=== PATIENT | male | born 1950 | race Caucasian/White ===

== ENCOUNTER 2024-11-23 17:47 | Emergency (ER) | payer OTHER, SELFPAY ==
--- NOTE | 2024-11-23 | ECG_ITS ---
Test Reason : CHEST PAIN Blood Pressure : */* mmHG Vent. Rate : 64 BPM Atrial Rate : 64 BPM P-R Int : 204 ms QRS Dur : 106 ms QT Int : 390 ms P-R-T Axes : 53 -32 -9 degrees QTcB Int : 402 ms Sinus rhythm with occasional Premature ventricular complexes Left axis deviation Abnormal ECG No previous ECGs available Referred By: Generic ED Physician Electronically Signed By: Kristian Jamison
--- NOTE | ~2024-11-23 | XR_ITS ---
CLINICAL HISTORY: chest pain 2 view chest x-ray Comparison: None Findings: Mild right infrahilar atelectasis/pneumonitis. Mild emphysematous changes. Heart size is at the upper limits of normal. Tortuosity of the thoracic aorta noted. Degenerative changes include the partially imaged shoulders, AC joints, and imaged spine. IMPRESSION: Mild right infrahilar atelectasis/pneumonitis This document has been electronically signed by: Scott Rolle MD on 11/23/2024 19:08:09
[2024-11-23 17:53] VITALS: BP 138/60; PULSE 63; RESP 20; TEMP 37; O2SAT 95; BMI 35.3
--- NOTE | 2024-11-23 17:55 | ED.GENADULT ---
HPI - General Adult General Chief complaint: Chest Pain Stated complaint: chest pains Time Seen by Provider: 11/23/24 23:38 Source: patient, RN notes reviewed and old records reviewed Mode of arrival: ambulatory Limitations: no limitations History of Present Illness ED Provider: Elliott SIMS narrative: 74-year-old male presents for evaluation of chest pain. He reports he was sitting at home when he had left-sided chest pain that lasted for a few seconds. The pain started while he was sitting down. He denies any cough, fevers, chills pain He does reports some shortness of breath while he was experiencing the pain. He does have a history of coronary artery disease with stents from a few years back The patient has not had any chest pain or palpitations since the few seconds around 4:30 p.m. this afternoon. His pain is not consistent with his previous coronary artery disease requiring stenting. He has no other complaints or concerns at this time Related Data Allergies Allergy/AdvReac Type Severity Reaction Status Date / Time No Known Allergies Allergy Verified 11/23/24 18:01 Review of Systems Constitutional: Constitutional: Denies body ache(s), Denies chills, Denies fever(s) and Denies frequent falls Eyes: Eyes: Denies blurry vision ENT: Denies vertigo and Denies dizziness Cardiovascular: Cardiovascular: Reports chest pain, Reports rapid heart rate, Reports palpitations and Denies dyspnea Respiratory: Respiratory: Denies cough and Denies dyspnea Gastrointestinal: Gastrointestinal: Denies abdominal pain, Denies nausea and Denies vomiting Musculoskeletal: Musculoskeletal: Denies back pain Integumentary/Breasts: Skin/Breast: Denies rash Neurologic: Denies vertigo, Denies dizziness and Denies frequent falls Endocrine: Endocrine: Reports palpitations PMFSH Social History Social History Alcohol intake: current Alcohol intake frequency: holidays/special occasions only Alcohol type: beer and hard liquor Smoked in Last 30 Days: No Use of substances other than those prescribed or required for medical reasons: No Advance Directives: No Advance Directives Information Provided: No Physical Exam ED Vital Signs: Vital Signs - 24 hr 11/23/24 17:53 11/23/24 21:18 Temperature 98.6 F 97.9 F Pulse Rate 63 61 Respiratory Rate 20 13 Blood Pressure 138/60 124/71 Pulse Oximetry 95 96 Oxygen Delivery Method Room Air Room Air BMI result Body Mass Index 35.3 Const General: healthy appearing, comfortable, no acute distress, alert and awake Nutritional Appearance: well nourished Orientation/consciousness: patient oriented x3 HENMT Head: Yes normocephalic and Yes atraumatic Eyes Eyelids: Yes eyelids normal Conjunctivae: conjunctivae normal Sclerae: sclerae normal Corneas: corneas normal Pupils: Equal, round and reactive pupils present EOM: EOMs intact bilaterally Neck Neck: Yes full ROM Resp Effort & Inspection: normal respiratory effort, able to speak in complete sentences, no audible wheezes and not labored Auscultation: clear to auscultation bilaterally Cardio Rate: regular rate Rhythm: regular rhythm GI Inspection: No distended Palpation (GI): Soft to palpation, not firm, nontender, no guarding and not rigid Skin General skin exam: no rashes or lesions noted and elasticity normal Neuro General: patient oriented x3 Cranial nerves: Yes Equal, round and reactive pupils present and Yes Bilaterally intact EOM present Cognition (Neuro): normal cognition Extrem Other: Moving all extremities well without any obvious deformities Course Course Course Narrative: This is a rapid medical exam performed by Jose Muñiz NP: Additional HPI, ROS, PE not included below will be deferred to primary provider. Patient is a 74-year-old [place] speaking male with history of prior ?stents placed in [place] 2 yrs ago, not anticoagulated presenting with complaint of chest pain x 2 hrs, began while sitting on the couch. Headache x 1 hr. Plan: EKG, labs, CXR Medical Decision Making Medical Decision Making [facility] Narrative: 74-year-old male with past medical history significant for coronary artery disease, COPD, not on oxygen presents for evaluation of chest pain. He had a brief episode of chest pain that was left-sided in his lasted a few seconds around 4:30 p.m. this afternoon. His workup shows no evidence of acute ischemia, he had a troponin drawn twice both of which were negative, his chest x-ray shows right-sided pneumonitis versus atelectasis. He has no cough fevers, chills. His pain is left-sided. This x-ray finding is most consistent with atelectasis. Hypoxic, tachypneic or tachycardic. Less likely PE. Asymptomatic. His pain may have been related to anxiety versus chest wall strain versus GERD. However he will be discharged to follow up with his PCP Differential Diagnosis Differential Diagnoses: The differential diagnosis associated with the presentation includes Chest pain ACS Costochondritis Chest anxiety COPD Admission/Observation Consideration of admission/observation: Escalation of care including admission/observation considered Lab Data MDM Lab Attestation statement: I reviewed the patient's lab results. Leukocytosis or anemia. Normal platelet count. No electrolyte abnormalities. Normal renal function. 11/23/24 18:06 11/23/24 18:06 Labs: Lab Results 11/23/24 11/23/24 Range/Units 18:06 19:56 WBC 8.0 (4.8-10.8) X10*3/uL RBC 4.78 (4.60-5.80) X10*6/uL Hgb 14.8 (14.0-18.0) g/dl Hct 43.6 (42.0-52.0) % MCV 91.2 (80.0-98.0) fL MCH 31.0 (27.0-33.0) pg MCHC 33.9 (31.0-36.0) g/dl RDW 12.6 (11.0-16.0) % Plt Count 176 (160-400) X10*3/uL MPV 9.8 (9.4-12.4) fL Immature Gran % (Auto) 0.3 (0.0-0.4) % Neut % (Auto) 60.5 (45-73) % Lymph % (Auto) 30.9 (20-40) % [place] % (Auto) 6.8 (2-11) % Eos % (Auto) 1.0 (0-4) % Baso % (Auto) 0.5 (0-2) % Lymph # (Auto) 2.5 (1.2-4.9) X10*3/uL [place] # (Auto) 0.5 (0.1-1.2) X10*3/uL Eos # (Auto) 0.1 (0.0-0.4) X10*3/uL Baso # (Auto) 0.0 (0.0-0.2) X10*3/uL Abs Immat Gran (auto) 0.02 (0.00-0.03) X10*3/uL Absolute Neuts (auto) 4.9 (2.0-8.3) x10*3/uL Absolute Nucleated RBC 0.000 (0.0-0.012) X10*3/uL Nucleated RBC % (auto) 0.0 (0.0-0.2) /100WBC Sodium 143 (135-145) mmol/L Potassium 4.8 (3.3-5.1) mmol/L Chloride 109 H (96-108) mmol/L Carbon Dioxide 29 (22-29) mmol/L Anion Gap 10 L (12-20) BUN 16 (9-16) mg/dL Creatinine 1.13 (0.5-1.4) mg/dL Estim Creat Clear Calc 62.1 Estimated GFR > 60 Random Glucose 174 H (60-115) mg/dL Calcium 9.0 (8.4-10.2) mg/dL Magnesium 2.1 (1.6-2.6) mg/dL Total Bilirubin 0.2 (0.0-1.0) mg/dL AST 21 (5-37) U/L ALT 36 (0-40) U/L Alkaline Phosphatase 66 (39-117) U/L Troponin I High Sens < 2.7 < 2.7 (<3.5-35.0) ng/L B-Natriuretic Peptide 97 (<100) pg/mL Total Protein 7.2 (6.5-8.0) g/dL Albumin 3.9 (3.5-5.0) g/dL Influenza Type A (PCR) NEGATIVE (Negative) Influenza Type B (PCR) NEGATIVE (Negative) RSV RNA Qual (PCR) NEGATIVE (Negative) SARS-CoV-2 RNA (RT-PCR) NEGATIVE (Negative) Independent Interpretation I performed an independent interpretation of an: EKG and Plain X-Ray Interpretation: Sinus rhythm with a rate of 64 beats minute Radiology Impression Discussion of test interpretation with radiology: I have reviewed the radiologist's reading. Radiologist Impression: Findings: Mild right infrahilar atelectasis/pneumonitis. Mild emphysematous changes. Heart size is at the upper limits of normal. Tortuosity of the thoracic aorta noted. Degenerative changes include the partially imaged shoulders, AC joints, and imaged spine. IMPRESSION: Mild right infrahilar atelectasis/pneumonitis This document has been electronically signed by: Scott Rolle MD on 11/23/2024 19:08:09 Discharge Plan Discharge Clinical Impression: Atypical chest pain Patient Disposition: Home, Self-Care Instructions: Chest Pain (ED) Additional Instructions: Your workup in the ER today was reassuring. This includes your blood work, chest x-ray, and EKG. Follow-up with your primary doctor. Return for new or worsening symptoms Print Language: Moz[place]ican
[2024-11-23 18:10] LABS: MANUAL DIFF FLAG NO
[2024-11-23 18:21] LABS: Basophils Percent Auto 0.5 % (0-2); Eosinophils Absolute Auto 0.1 X10*3/uL (0.0-0.4); Hematocrit 43.6 % (42.0-52.0); Hemoglobin 14.8 g/dl (14.0-18.0); Imm Gran Abs Auto 0.02 X10*3/uL (0.00-0.03); Imm Gran Pct Auto 0.3 % (0.0-0.4); Lymphocytes Absolute Auto 2.5 X10*3/uL (1.2-4.9); Lymphocytes Percent Auto 30.9 % (20-40); Mean Corpuscular HGB Conc 33.9 g/dl (31.0-36.0); Mean Corpuscular Volume 91.2 fL (80.0-98.0); Mean Platelet Volume 9.8 fL (9.4-12.4); Monocytes Absolute Auto 0.5 X10*3/uL (0.1-1.2); Monocytes Percent Auto 6.8 % (2-11); Neutrophils Absolute Auto 4.9 x10*3/uL (2.0-8.3); Neutrophils Percent Auto 60.5 % (45-73); Platelet Count 176 X10*3/uL (160-400); Red Blood Count 4.78 X10*6/uL (4.60-5.80); Red Cell Distribution Width 12.6 % (11.0-16.0)
[2024-11-23 18:27] LABS: Alanine Aminotransferase 36 U/L (0-40); Albumin Level 3.9 g/dL (3.5-5.0); Alkaline Phosphatase 66 U/L (39-117); Anion Gap 10 (12-20); Aspartate Amino Transferase 21 U/L (5-37); Bilirubin Total 0.2 mg/dL (0.0-1.0); Blood Urea Nitrogen 16 mg/dL (9-16); Carbon Dioxide 29 mmol/L (22-29); Chloride 109 mmol/L (96-108); Creatinine Clr Calc Pharmacy 62.1; Estimated Glomerular Filt Rate > 60; Glucose Random 174 mg/dL (60-115); Magnesium 2.1 mg/dL (1.6-2.6); Potassium 4.8 mmol/L (3.3-5.1); Sodium 143 mmol/L (135-145); Total Protein 7.2 g/dL (6.5-8.0)
[2024-11-23 18:33] LABS: B Type Natriuretic Peptide 97 pg/mL (<100)
[2024-11-23 18:34] LABS: Troponin-I High Sensitivity < 2.7 ng/L (<3.5-35.0)
[2024-11-23 18:48] LABS: Influenza A PCR NEGATIVE (Negative); Influenza B PCR NEGATIVE (Negative); Resp Syncy Virus RNA Qual PCR NEGATIVE (Negative); SARS COV2 PCR INHOUSE NEGATIVE (Negative)
[2024-11-23 20:23] LABS: Troponin-I High Sensitivity < 2.7 ng/L (<3.5-35.0)
[2024-11-23 21:18] VITALS: BP 124/71; PULSE 61; RESP 13; TEMP 36.6; O2SAT 96
[2024-11-23 21:19] VITALS: PULSE 59
[2024-11-24 00:25] VITALS: BP 124/73; PULSE 62; RESP 16; TEMP 36.8; O2SAT 97
== END 2024-11-24 00:32 | disposition home or self-care (01) ==
PROVIDERS: Registered Nurse Emergency; Emergency Provider Emergency Medicine
DX: R07.89 Other chest pain (principal); R06.02 Shortness of breath; I25.10 Atherosclerotic heart disease of native coronary artery without angina pectoris; Z03.818 Encounter for observation for suspected exposure to other biological agents ruled out; Z79.899 Other long term (current) drug therapy
CPT/HCPCS: 0241U; 36415; 71046; 80053; 83735; 83880; 84484; 85025; 93005; 99283; 99285

== ENCOUNTER → 2024-11-23 17:49 | Outpatient (BNV) | payer OTHER, SELFPAY | PROVIDERS: Emergency Provider Emergency Medicine; Visit Provider Internal Medicine Cardiovascular Disease | DX: I49.3 Ventricular premature depolarization (principal) | CPT/HCPCS: 93010 ==

== ENCOUNTER → 2024-11-23 18:01 | Outpatient (BNV) | payer OTHER, SELFPAY | PROVIDERS: Visit Provider Radiology Neuroradiology | DX: R07.9 Chest pain, unspecified (principal) | CPT/HCPCS: 71046 ==

== ENCOUNTER 2025-01-11 12:52 | Outpatient (AMB) | payer OTHER, SELFPAY ==
--- NOTE | 2025-01-11 12:57 | A.OFFVIS_ITS ---
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 Intake Note: [facility]) had stint about 2 years ago Entry Level Machine Operator Required: Yes Entry Level Machine Operator Services: Entry Level Machine Operator Present Entry Level Machine Operator Name: Vidya Airline Radio Operator: Airline Radio Operator Present Accompanied by: Spouse Allergies No Known Allergies Allergy (Verified 11/23/24 18:01) Medication List - Last Reconciled 01/11/25 by Jeovany Valencia MD aspirin 81 mg PO DAILY atorvastatin 80 mg PO BEDTIME empagliflozin 25 mg PO DAILY escitalopram oxalate 10 mg PO DAILY finasteride 5 mg PO DAILY gabapentin 300 mg PO DAILY melatonin 3 mg PO BEDTIME PRN metoprolol succinate ER 25 mg PO DAILY omeprazole 20 mg PO DAILY sacubitril-valsartan 49-51 mg (Entresto) 1 tab PO BID tamsulosin 0.4 mg PO DAILY HPI Comments Details: Thank you for referring Mr. Yepez in cardiology consultation today. History was obtained with help of frame and scrap crusher in the room. History was provided with help of his . About couple of years ago he ended up going to the hospital was noted to have severe shortness of breath and was suspected that he probably had COPD exacerbation as he has prior history of COPD although at that time his echocardiogram revealed ejection fraction 15%. He subsequently underwent a cardiac catheterization and was noted to have severe triple-vessel disease. He was then offered coronary artery bypass grafting by his sales support manager but subsequently was felt that he was not a candidate for open-heart surgery. They clearly do not know why. He subsequently underwent multivessel PCI. I do not have any copy of the reports of these procedures. I have advised the to get these reports. He says subsequently had a echocardiogram last year which showed LV ejection fraction of 39%. He is currently on neurohormonal modulation with metoprolol as well as Entresto therapy. He is also on empagliflozin for diabetes. He said he is not able to exercise much because of his arthritic issues. He notices exertional shortness of breath climbing a flight of stairs and says that he has to use inhaler therapy. He tries to walk on a treadmill but he is limited because of the pain. He does not have any significant chest pain or shortness of breath. Denies any orthopnea, PND. Occasional leg edema but this is not constant. He denies any prolonged palpitation irregular heart beat. As per the he was gained weight since he has been here for the last 4 months due to lack of exercise also eating. He had lab work done through your office, I do not have the copy of the same. [facility] Medical History HTN (hypertension) Hyperlipidemia COPD (chronic obstructive pulmonary disease) Diabetes Ischemic cardiomyopathy CAD (coronary artery disease) Surgical History Stented coronary artery Social History Alcohol intake: current Alcohol intake frequency: holidays/special occasions only Alcohol type: beer and hard liquor Review of Systems Const Denies chills, Denies daytime sleepiness, Denies fatigue, Denies fever(s), Denies frequent falls, Denies poor appetite, Denies snoring, Denies stops breathing during sleep, Denies weakness, Denies weight gain and Denies weight loss Eyes Denies loss of vision ENT Denies dizziness and Denies hearing loss Card Denies chest pain, Denies claudication, Denies leg edema, Denies lightheadedness, Denies palpitations, Denies dyspnea, Denies dyspnea on exertion and Denies orthopnea Resp Denies cough, Denies excessive phlegm production, Denies dyspnea, Denies dyspnea on exertion, Denies snoring and Denies wheezing GI Denies abdominal pain, Denies hematochezia, Denies change in bowel habits, Denies nausea and Denies vomiting Denies dysuria and Denies urinary frequency Musc Denies arthralgias, Denies muscle weakness, Denies numbness and Denies other (frequent falls) Skin/Breast Denies nail changes and Denies rash Neuro Denies Abnormal speech present, Denies dizziness, Denies frequent falls, Denies loss of vision, Denies memory loss, Denies numbness and Denies weakness Psych Denies depression and Denies memory loss Endo Denies fatigue and Denies palpitations Javi/Lymph Reports easy bruising and Reports other (anemia) Aller/Immun Denies wheezing Physical Exam Vital Signs: Last Vital Signs Pulse 66 01/11/25 13:00 BP 110/68 01/11/25 13:00 BMI result Body Mass Index 35.9 Const General: cooperative, comfortable, no acute distress, alert and awake Nutritional Appearance: obese Orientation/consciousness: patient oriented x3 Limitations: ambulation with cane HEENT Head: Yes normocephalic and Yes atraumatic Neck Neck: Yes trachea midline, Yes supple and Yes no JVD Resp Effort & Inspection: normal respiratory effort Auscultation: no rales, no wheezes and diminished lung sounds Cardio Jugular venous distension: no JVD Rate: regular rate Rhythm: regular rhythm Heart sounds: S1 normal heart sound present, S2 normal heart sound present, no click, no gallops, no murmurs and no rubs Bruits: no carotid bruits GI Inspection: Yes obesity Auscultation: normal bowel sounds Skin General skin exam: no rashes or lesions noted and ecchymosis Neuro General: patient oriented x3 and no focal motor deficits Speech: No Abnormal speech present Extrem General: Yes no clubbing, cyanosis or edema Psych Appearance: grossly normal Office Procedures EKG Details: EKG shows normal sinus rhythm with nonspecific ST-T changes in inferior leads [id number], Complete Assessment & Plan Assessment & Plan (1) Ischemic cardiomyopathy: Code(s): I25.5 - Ischemic cardiomyopathy Category: Medical Plan: Ischemic cardiomyopathy in this elderly gentleman with moderate LV systolic dysfunction by last echocardiogram. Clinically does not have any signs of congestive heart failure. Signs and symptoms of heart failure were discussed. Strongly recommend to continue Entresto as well as metoprolol therapy. Can not maximize metoprolol therapy due to lower heart rate. Continue current therapy. Advised to call me with any worsening symptoms. Also continue empagliflozin for diabetes as well as neurohormonal modulation. No indication for diuretic therapy. Will update echocardiogram near future to assess LV systolic function. This was discussed with him. He has symptoms exertional shortness of breath and multifactorial most likely related to underlying significant COPD, deconditioning as well as obesity and LV systolic dysfunction. No signs of heart failure at this point time. (2) CAD (coronary artery disease): Code(s): I25.10 - Atherosclerotic heart disease of [place] coronary artery without angina pectoris Category: Medical Plan: CAD with multivessel PCI done for severe triple-vessel disease and LV systolic dysfunction possibly related to high risk for surgery given his underlying COPD. Would like to get Cardiothoracic consult note from [place]. For now discussed importance of lifelong aspirin therapy. Continue high-intensity statin therapy with target goal LDL less than 55 mg/dL. He is encouraged to increase activity level and participate in weight loss program. Blood pressure is currently well optimized. Will follow up in the clinic in 6 months time, sooner p.r.n.. Thank you for allowing me to partake in his care Orders: Orders CA echo transthoracic complete Today I25.5 - Ischemic cardiomyopathy Coding Level of Care Code New Pt Level 4 (34700) Complex EM visit Add On G2211 Diagnoses Ischemic cardiomyopathy I25.5 CAD (coronary artery disease) I25.10 CPT Codes EKG - CPT: 06258-[id number], Complete ([id number])
[2025-01-11 13:00] VITALS: BP 110/68; PULSE 66; BMI 35.9
== END 2025-01-11 13:46 | disposition home or self-care (01) ==
LOC: HO.HCS 12:52
PROVIDERS: PCP Internal Medicine; Visit Provider Internal Medicine Cardiovascular Disease
DX: I25.5 Ischemic cardiomyopathy (principal); I25.10 Atherosclerotic heart disease of native coronary artery without angina pectoris
CPT/HCPCS: 93010; 99204; G2211

== ENCOUNTER → 2025-01-11 12:52 | Outpatient (BNVA) | payer OTHER, SELFPAY | PROVIDERS: PCP Internal Medicine; Visit Provider Internal Medicine Cardiovascular Disease | DX: I25.5 Ischemic cardiomyopathy (principal); I25.10 Atherosclerotic heart disease of native coronary artery without angina pectoris | CPT/HCPCS: 93005; 99202 ==

== ENCOUNTER 2025-01-27 13:19 | Outpatient (AMB) | payer OTHER, SELFPAY ==
--- NOTE | 2025-01-27 13:22 | MHC.OFFVIS ---
Vital Signs 01/27/25 13:23 Height 5 ft 5 in Weight 213 lb 2 oz BMI 35.5 BP 104/78 Blood Pressure Location Lt brachial Position Sitting Pulse 66 Pulse Source Pulse Oximeter Pulse Oximetry (%) 96 Oxygen Delivery Method Room Air Intake Visit Reasons: COPD Retirement Benefits Specialist Required: Yes Retirement Benefits Specialist Language: Credentialing Specialist Services: Retirement Benefits Specialist Present Retirement Benefits Specialist Name: Loreto Dubon OA Allergies No Known Allergies Allergy (Verified 01/27/25 13:29) HPI HPI COPD: Details: Spenser is a pleasant 74-year-old male, former 80 pack year smoker, quit 3 years ago with underlying COPD, heart failure, GERD, ARMIDA noncompliant with CPAP and h/o CAD s/p stents. [facility]. He reports worsening respiratory symptoms over the last few months with suboptimal control on Breztri. He reports using Levalbuterol MDI up to 5 times per day with moderate effect. He continues with wheezing, dyspnea on exertion, chest tightness and dry cough occasionally productive with green sputum. Prior chest x-ray from November 2024 revealed mild pneumonitis. He has not had any prescriptions of prednisone or antibiotics over the last 6 months. He reports recently moving here from [place] and had been hospitalized on 2 occasions for COPD/heart failure exacerbations. He denies prior use of supplemental oxygen other than hospital stays. He reports history of asthma diagnosed as an adult, never requiring intubation. He denies any seasonal allergies. 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 He denies any pertinent family history. He is under the care of a [facility] for known heart failure and will have upcoming echo. Last echo revealed LVEF of 39%. [facility] Medical History HTN (hypertension) Hyperlipidemia COPD (chronic obstructive pulmonary disease) Diabetes Ischemic cardiomyopathy CAD (coronary artery disease) Surgical History Stented coronary artery Social History (Updated 01/27/25 @ 13:28 by Loreto Hewitt CMA) Alcohol intake: current Alcohol intake frequency: holidays/special occasions only Alcohol type: beer and hard liquor Patient Tobacco Use Status: Former Tobacco user Review of Systems ENT Reports Normal hearing present Neuro Reports Normal hearing present Physical Exam Vital Signs: Last Vital Signs Pulse 66 01/27/25 13:23 BP 104/78 01/27/25 13:23 Pulse Ox 96 01/27/25 13:23 Oxygen Delivery Method Room Air 01/27/25 13:23 BMI result Body Mass Index 35.5 Const General: cooperative, healthy appearing, comfortable, no acute distress, well developed and alert Nutritional Appearance: obese Orientation/consciousness: patient oriented x3 Limitations: no limitations HEENT Head: Yes normal to inspection, Yes normocephalic and Yes atraumatic Ears: hearing grossly normal bilaterally and external ears normal Eyes General: appearance normal, both eyes and all related structures Eyelids: Yes eyelids normal Sclerae: sclerae normal EOM: EOMs intact bilaterally Neck Neck: Yes normal visual inspection and Yes no lymphadenopathy Lymphatic: no lymphadenopathy noted Chest Chest palpation & inspection: normal inspection of the chest Resp Effort & Inspection: normal respiratory effort, able to speak in complete sentences, audible wheezes, no cough, no stridor, not tachypneic, no tripod positioning and no use of accessory muscles Auscultation: wheezes and diminished lung sounds Cardio Jugular venous distension: no JVD Rate: regular rate Rhythm: regular rhythm Skin Other: warm, dry General skin exam: no rashes or lesions noted Neuro General: patient oriented x3 Cranial nerves: Yes Normal hearing present Cognition (Neuro): normal cognition Gait exam (Neuro): Normal gait present Psych Appearance: grossly normal and well kempt Speech and movement: Normal speech and movement present and Clear speech present Affect: normal affect Attitude: cooperative Thought process: Normal thought process present Thought content: Normal thought content present Insight: Good insight present (Psych) Judgement: Good judgement present (Psych) Office Procedures 6 Minute Walk Time:: 14:13 SPO2 % at rest: 98 Pulse at rest: 67 SPO2 % during excercise: 93 Pulse during excercise: 88 SPO2 % after excercise: 96 Pulse after excercise: 84 Distance in yards walked: 150 Thanh Score: 7 Performance Observations:: Patient walked on level ground using a cane in his left hand. Gait is steady and brisk. Patient was able to complete the entire walk maintaining O2 saturation of 93-98% and pulse rate in the 80's. Patient did have wheezing and shortness of breath during the walk but did not require the use of supplemental oxygen. [id number] - 6 Minute Walk Nebulizer Treatment Nebulizer Treatment 67597-Ymnypbnke/MDI RX initial, or Nebulizer Subsequent Treatment Office Meds methylprednisolone sod suc(PF) 125 mg/2 mL solution for injection Performing Provider: Makayla Anderson NP Performing Location: [facility] Administered by: Alondra Sandoval LPN on 01/27/25 14:31 Dose Route Admin Location Dispensed Lot Number Expiration Date [facility] Electric [employer]vel [employer] 125 mg IM rt buttock 1 ea [id number] 12/07/25 4495-9191-72 [employer] levalbuterol HCl 1.25 mg/3 mL solution for nebulization Performing Provider: Makayla Anderson NP Performing Location: [facility] Administered by: Alondra Sandoval LPN on 01/27/25 14:05 Dose Route Admin Location Dispensed Lot Number Expiration Date [place] Electric 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 Mild emphysematous changes. Heart size is at the upper limits of normal. Tortuosity of the thoracic aorta noted. Degenerative changes include the partially imaged shoulders, AC joints, and imaged spine. 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: Assessment & Plan Assessment & Plan (1) COPD (chronic obstructive pulmonary disease): Code(s): J44.9 - Chronic obstructive pulmonary disease, unspecified Category: Medical (2) Personal history of tobacco use: Code(s): Z87.891 - Personal history of nicotine dependence Category: Social Hx (3) Abnormal chest xray: Code(s): R93.89 - Abnormal findings on diagnostic imaging of other specified body structures Category: Medical (4) Chronic cough: Code(s): R05.3 - Chronic cough Category: Medical (5) Obstructive sleep apnea: Code(s): G47.33 - Obstructive sleep apnea (adult) (pediatric) Category: Medical Plan Spenser presents for pulmonary evaluation for known h/o COPD, unclear severity. Symptoms are likely multifactorial with pulmonary, cardiac and deconditioning etiologies. Will send for PFT to assess severity. Prior CXR revealed mild pneumonitis, will send for chest CT for further evaluation. At this time, patient with current exacerbation will treat with prednisone and doxycycline. Solumedrol IM given in office today. Minimal improvement after nebulized therapy. He is aware to call symptoms do not improve, if symptoms worsen will seek emergent care. Encourage patient to continue Breztri in addition to levalbuterol nebulizer. Discussed potential cardiac effects of overusing JULIUS. Patient with reportedly moderate ARMIDA dx two years ago and currently has CPAP but noncompliant. Discussed adverse effects of untreated ARMIDA and patient declined to further evaluate. All questions were answered and patient is in agreement of plan. Will follow-up in 6-8 weeks or sooner if needed. Orders: Orders AMB Nebulizer Treatment Today J44.9 - Chronic obstructive pulmonary disease, unspecified CT chest wo IV con Today R05.3 - Chronic cough, R93.89 - Abnormal findings on diagnostic imaging of other specified body structures AMB Methylprednisolone Sod Succ Injection Today J44.9 - Chronic obstructive pulmonary disease, unspecified PFT pulmonary function test Today J44.9 - Chronic obstructive pulmonary disease, unspecified AMB 6 minute walk Today J44.9 - Chronic obstructive pulmonary disease, unspecified Medications: New prednisone 40 mg (2 x 20 mg) PO DAILY 10 tabs 0RF doxycycline hyclate 100 mg PO BID 14 caps 0RF Coding Level of Care Code New Pt Level 4 (47116) Complex EM visit Add On G2211 Diagnoses COPD (chronic obstructive pulmonary disease) J44.9 Personal history of tobacco use Z87.891 Abnormal chest xray R93.89 Chronic cough R05.3 Obstructive sleep apnea G47.33 CPT Codes Coding ([id number]) Nebulizer Treatment - Nebulizer Treatment, initial or subsequent: 51458-Baldkbrsp/MDI RX initial, or Nebulizer Subsequent Treatment ([id number])
[2025-01-27 13:23] VITALS: BP 104/78; PULSE 66; O2SAT 96; BMI 35.5
--- OUTSIDE RECORDS SUMMARY | 2025-01-27 13:54 | XMS_ITS | Clinical Summary ---
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 Name Role Phone Unavailable Primary Care Provider Unavailabl e Social History Tobacco Use Types Packs/Day Years Used Date Smoking Tobacco: Never Assessed Sex and Gender Information Value Date Recorded Sex Assigned at Not on file Legal Sex Male 9:00 PM EST Gender Identity Not on file Sexual Orientation Not on file Plan of Treatment Health Maintenance Due Date Last Done Comments DTaP,Tdap,and Td Vaccines (1 - Tdap) 1970 Pneumococcal Vaccine: 50+ Ye ars (1 of 1 - PCV) 2001 Zoster Vaccines (1 of 2) 2001 Abdominal Aortic Aneurysm (A AA) Screen 10/04/2023 Cholesterol Screening (Lipid Panel) 10/04/2023 Colorectal Cancer Screening: Colonoscopy 10/04/2023 Depression Screening 10/04/2023 Falls Risk Assessment 10/04/2023 Hepatitis C Screening 10/04/2023 Social Influencers of Health Screening 10/04/2023 COVID-19 Vaccine ( - 2023-2 5 season) 2024 Influenza Vaccine (Season Ended) 2025 RSV Immunization Adult Patie nts (1 - 1-dose 75+ series) 2026 HIB Vaccines Aged Out No longer eligi ble based on patient's age to complete this topic HPV Vaccines Aged Out No longer eligi ble based on patient's age to complete this topic Hepatitis A Vaccines Aged Out No long er eligible based on patient's age to complete this topic Hepatitis B Vaccines Aged Out No long er eligible based on patient's age to complete this topic IPV Vaccines Aged Out No longer eligi ble based on patient's age to complete this topic MMR Vaccines Aged Out No longer eligi ble based on patient's age to complete this topic Meningococcal ACWY Vaccine Aged Out N o longer eligible based on patient's age to complete this topic Meningococcal B Vaccine Aged Out No l onger eligible based on patient's age to complete this topic RSV Immunization Patients Un bryce 20 months Aged Out No longer eligible b ased on patient's age to complete this topic Varicella Vaccines Aged Out No longer eligible based on patient's age to complete this topic
[2025-01-27 14:40] VITALS: PULSE 67; O2SAT 98
== END 2025-01-27 14:26 | disposition home or self-care (01) ==
PROVIDERS: PCP Internal Medicine; Referring Provider Internal Medicine; Visit Provider Nurse Practitioner Family
DX: J44.9 Chronic obstructive pulmonary disease, unspecified (principal); Z87.891 Personal history of nicotine dependence; R93.89 Abnormal findings on diagnostic imaging of other specified body structures; R05.3 Chronic cough; G47.33 Obstructive sleep apnea (adult) (pediatric)
CPT/HCPCS: 94618; 99204; G2211

== ENCOUNTER → 2025-01-27 13:19 | Outpatient (BNVA) | payer OTHER, SELFPAY | PROVIDERS: PCP Internal Medicine; Referring Provider Internal Medicine; Visit Provider Nurse Practitioner Family | DX: J44.9 Chronic obstructive pulmonary disease, unspecified (principal); G47.33 Obstructive sleep apnea (adult) (pediatric); R93.89 Abnormal findings on diagnostic imaging of other specified body structures; R05.3 Chronic cough; Z91.199 Patient's noncompliance with other medical treatment and regimen due to unspecified reason; Z87.891 Personal history of nicotine dependence | CPT/HCPCS: 94618; 94640; 96372; 99202 ==

== ENCOUNTER → 2025-02-11 10:48 | Outpatient (REF) | payer OTHER, SELFPAY ==
--- NOTE | 2025-02-11 10:53 | CA_ITS ---
Transthoracic Echocardiogram Patient (Last, First, Middle): Spenser Tiwari, Gender: Male Date of : 1950 Age: 74 Procedure Date: 02/11/2025 Procedure Type: Transthoracic Echocardiogram Location: OP Height: 172.72 cm Weight: 94.35 kg BSA: 2.08 m2 Heart Rate: bpm BP: 110 / 68 mmHg Monkey Trainer: TO Referring MD: Jeovany Valencia MD Symptoms: I25.5 - Ischemic cardiomyopathy Study Quality: Fair/Contrast ECG Rhythm: Sinus Conclusions: - The left ventricular systolic function is mild to moderately decreased. The calculated ejection fraction is 42% by biplane method. - The inferolateral wall and basal inferior segment are akinetic. - No obvious valvular pathology seen on this study. Findings Procedure Information Contrast agent, definity, is being given per protocol without apparent complications. Left Ventricle Normal left ventricular cavity size. The left ventricular systolic function is mild to moderately decreased. The calculated ejection fraction is 42% by biplane method. There is moderate global hypokinesis. Evidence suggests grade I (mild) diastolic dysfunction. There is moderate septal asymmetric hypertrophy. Wall Motion Rest Echo Findings The inferolateral wall and basal inferior segment are akinetic. Right Ventricle Mildly increased right ventricular cavity size. There is normal right ventricular systolic function. Atria Both atria are normal in size. Aortic Valve There is a normal trileaflet aortic valve. There is mild calcification of the aortic valve. There is no aortic valve stenosis. Trace to mild aortic regurgitation. Mitral Valve The mitral valve appears normal. There is no mitral valve regurgitation. There is no mitral valve stenosis. Pulmonic Valve There is trace pulmonic valve regurgitation. Tricuspid Valve There is trace tricuspid valve regurgitation. There is no evidence of pulmonary hypertension. Great Vessels The asc aorta is normal in size. Venous The inferior vena cava is normal in size and collapses greater than 50% with inspiration. Pericardium/Pleural There is no evidence of pericardial effusion. Prior Study Comparison No prior study available for comparison. Recommendations, Care & Conclusions No obvious valvular pathology seen on this study. Measurements 2D Linear Measurements IVSd: 1.32 0.6-0.9/0.6-1.0 cm LVIDd: 4.64 3.9-5.3/4.2-5.9 cm LVIDd Index: 2.23 2.4-3.2/2.2-3.1 cm/m2 LVIDs: 3.68 2.0-3.6 cm LVPWd: 1.02 0.7-1.1 cm LA Diam: 3.50 2.7-3.8/3.0-4.0 cm LAIDs Index: 1.68 1.5-2.3 cm/m2 LV Mass: 249.78 67-162/88-224 g LV Mass Index: 120.09 43-95/49-115 g/m2 LVOT Diam: 2.20 3.0+(-)1.3 cm 2D Systolic Function EF 4C: 37.30 >55% EF 2C: 46.70 >55% EF BiP: 41.90 >55% Mitral Valve MV VTI: 0.29 MV Pk Manjinder: 1.22 MV Mn Manjinder: 0.63 MV Pk Grad: 6.00 MV Mn Grad: 2.00 MV Pk E: 0.75 MV PK A: 0.99 MV Decel Time: 231.00 E/A: 0.80 E'Lateral: 3.92 E'Medial: 3.81 E/E' Med: 19.60 E/E' Lat: 19.00 PHT: 68.00 MVA PHT: 3.24 MVA Continuity: 2.12 Decel [place]: 3.23 Aortic Valve AoV Pk Manjinder: 1.48 AoV Mn Manjinder: 1.13 AoV VTI: 0.33 AoV Pk Grad: 9.00 Aov Mn Grad: 5.00 YEISON Cont.VTI: 1.87 AI Pk Manjinder: 4.14 AI [place]: 1.85 LVOT LVOT Pk Manjinder: 0.73 LVOT Mn Manjinder: 0.55 LVOT VTI: 0.16 LVOT Pk Grad: 2.00 LVOT Mn Grad: 1.00 LVOT Diam: 2.20 LVOT Area: 3.80 Diastolic Function MV Pk E: 0.75 MV Pk A: 0.99 E/A: 0.80 E'Medial: 3.81 E/E' Med: 19.60 E' Laterial: 3.92 E/E' Lat: 19.00 Right Ventricle TAPSE (mm): 22.20 TVS' Manjinder: 11.00 Tricuspid Valve RA Press: 3.00 Great Vessels Aorta Sinus of Valsalva: 3.63 2.0-3.[address] [place]: 3.02 1.7-3.4 cm Ao Asc: 3.90 2.1-3.4 cm Updated in Other Vendor System with Status of Final Jason Wheatley MD electronically signed on 02/13/2025 11:55:04 AM with status of Final
--- OUTSIDE RECORDS SUMMARY | 2025-02-11 12:42 | XMS_ITS | Clinical Summary ---
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
== END ==
LOC: HO.CARD 10:48
PROVIDERS: PCP Internal Medicine; Visit Provider Internal Medicine Cardiovascular Disease
DX: I25.5 Ischemic cardiomyopathy (principal)
CPT/HCPCS: 93306; Q9957

== ENCOUNTER → 2025-02-11 10:53 | Outpatient (BNV) | payer OTHER, SELFPAY | PROVIDERS: PCP Internal Medicine; Visit Provider Internal Medicine | DX: I51.89 Other ill-defined heart diseases (principal); I70.0 Atherosclerosis of aorta; I35.1 Nonrheumatic aortic (valve) insufficiency | CPT/HCPCS: 93306 ==

== ENCOUNTER 2025-03-19 10:30 | Outpatient (AMB) | payer OTHER, SELFPAY ==
--- NOTE | 2025-03-19 10:34 | A.OFFVIS_ITS ---
Vital Signs 03/19/25 10:42 Height 5 ft 5 in Weight 211 lb BMI 35.1 BP 126/78 Blood Pressure Location Rt brachial Pulse 74 Pulse Source Pulse Oximeter Pulse Oximetry (%) 95 Oxygen Delivery Method Room Air Intake Visit Reasons: COPD Environmental Service Aide Required: No Commercial Announcer: Commercial Announcer offered & declined Accompanied by: Self / Same As Patient Allergies No Known Allergies Allergy (Verified 03/19/25 10:44) Medication List - Last Reconciled 03/19/25 by Alondra Sandoval LPN aspirin 81 mg PO DAILY atorvastatin 80 mg PO BEDTIME ttyxaqirsx-qwweuvij-itrucyfqzb 160-9-4.8 mcg/actuation (Breztri Aerosphere) 2 inhalations inhalation BID doxycycline hyclate 100 mg PO BID empagliflozin 25 mg PO DAILY escitalopram oxalate 10 mg PO DAILY finasteride 5 mg PO DAILY gabapentin 300 mg PO DAILY levalbuterol tartrate 45 mcg/actuation (Xopenex HFA) 2 puffs inhalation Q4-6H PRN melatonin 3 mg PO BEDTIME PRN metoprolol succinate ER 25 mg PO DAILY omeprazole 20 mg PO DAILY prednisone 40 mg (2 x 20 mg) PO DAILY sacubitril-valsartan 49-51 mg (Entresto) 1 tab PO BID tamsulosin 0.4 mg PO DAILY HPI HPI COPD: Details: Spenser is a pleasant 74-year-old male, former 80 pack year smoker, quit 3 years ago with underlying COPD, CHF, GERD, ARMIDA noncompliant with CPAP and h/o CAD s/p stents. At the last visit, he reported worsening respiratory symptoms over the last few months with suboptimal control on Breztri and using Levalbuterol MDI up to 5 times per day with moderate effect. He was treated on 01/27 with Doxycycline, prednisone and IM Solumedrol for ongoing wheezing, dyspnea on exertion, chest tightness and dry cough occasionally productive with green sputum. He noted complete resolution of symptoms for about a month however symptoms have recurred one week ago. He reports productive cough with green sputum, chest tightness/congestion, dyspnea and wheezing. He has been using his nebulized therapy 1-2 times per day with moderate effect. He denies fevers, chills or sick contacts. At the last visit he was sent for chest CT as prior chest x-ray from November 2024 revealed mild pneumonitis, which is scheduled in the next few weeks along with PFT. [facility] Medical History HTN (hypertension) Hyperlipidemia COPD (chronic obstructive pulmonary disease) Diabetes Ischemic cardiomyopathy CAD (coronary artery disease) Surgical History Stented coronary artery Social History Alcohol intake: current Alcohol intake frequency: holidays/special occasions only Alcohol type: beer and hard liquor Patient Tobacco Use Status: Former Tobacco user Review of Systems Const Denies chills, Denies excessive sweating, Denies fever(s), Denies headache(s) and Denies night sweats Eyes Denies dry eyes, Denies irritation and Denies itchy eyes ENT Reports Normal hearing present and Denies headache(s) Card Denies chest pain, Denies chest pain at rest, Denies chest pain with activity, Denies claudication, Denies leg edema, Denies dyspnea, Denies orthopnea and Denies paroxysmal nocturnal dyspnea Resp Denies excessive phlegm production, Denies pain on inspiration, Denies pain with cough, Denies dyspnea and Denies stridor Musc Denies myalgias Neuro Reports Normal hearing present and Denies headache(s) Endo Denies excessive sweating Javi/Lymph Denies lymphadenopathy Aller/Immun Denies itchy eyes and Denies seasonal rhinorrhea Physical Exam Vital Signs: Last Vital Signs Pulse 74 03/19/25 10:42 Pulse Ox 95 03/19/25 10:42 Oxygen Delivery Method Room Air 03/19/25 10:42 BMI result Body Mass Index 35.1 Const General: cooperative, healthy appearing, comfortable, no acute distress, well developed and alert Nutritional Appearance: obese Orientation/consciousness: patient oriented x3 Limitations: no limitations HEENT Head: Yes normal to inspection, Yes normocephalic and Yes atraumatic Ears: hearing grossly normal bilaterally and external ears normal Eyes General: appearance normal, both eyes and all related structures Eyelids: Yes eyelids normal Sclerae: sclerae normal EOM: EOMs intact bilaterally Neck Neck: Yes normal visual inspection and Yes no lymphadenopathy Lymphatic: no lymphadenopathy noted Chest Chest palpation & inspection: normal inspection of the chest Resp Other: faint LLL inspiratory crackles Effort & Inspection: normal respiratory effort, able to speak in complete sentences, no audible wheezes, no cough, no stridor, not tachypneic, no tripod positioning and no use of accessory muscles Cardio Jugular venous distension: no JVD Rate: regular rate Rhythm: regular rhythm Skin Other: warm, dry General skin exam: no rashes or lesions noted Neuro General: patient oriented x3 Cranial nerves: Yes Normal hearing present Cognition (Neuro): normal cognition Gait exam (Neuro): Normal gait present Extrem General: Yes normal to inspection, Yes capillary refill normal, Yes no clubbing, cyanosis or edema and Yes no pedal edema Psych Appearance: grossly normal and well kempt Speech and movement: Normal speech and movement present and Clear speech present Affect: normal affect Attitude: cooperative Thought process: Normal thought process present Thought content: Normal thought content present Insight: Good insight present (Psych) Judgement: Good judgement present (Psych) Assessment & Plan Assessment & Plan (1) COPD (chronic obstructive pulmonary disease): Code(s): J44.9 - Chronic obstructive pulmonary disease, unspecified Category: Medical (2) Personal history of tobacco use: Code(s): Z87.891 - Personal history of nicotine dependence Category: Social Hx (3) Abnormal chest xray: Code(s): R93.89 - Abnormal findings on diagnostic imaging of other specified body structures Category: Medical (4) Chronic cough: Code(s): R05.3 - Chronic cough Category: Medical (5) Obstructive sleep apnea: Code(s): G47.33 - Obstructive sleep apnea (adult) (pediatric) Category: Medical Plan At this time, will treat bronchitic symptoms with Augmentin, will hold off on prednisone as no wheezing appreciated today. He is aware to call if symptoms do not improve or seek emergent care if symptoms worsen. He is advised to increase the use of his nebulizer to every four to six hours for the next three to five days to manage respiratory symptoms. Awaiting PFT and chest CT results, which are scheduled in the upcoming weeks. All questions were answered and patient is in agreement of plan. Will follow-up in 6-8 weeks or sooner if needed. Medications: New amoxicillin-pot clavulanate 875-125 mg 1 tab PO Q12H 20 tabs 0RF Discontinued prednisone Discontinued Reason: Patient Completed Course 40 mg (2 x 20 mg) PO DAILY 10 tabs 0RF doxycycline hyclate Discontinued Reason: Patient Completed Course 100 mg PO BID 14 caps 0RF Coding Level of Care Code Est Pt Level 4 (06844) Diagnoses COPD (chronic obstructive pulmonary disease) J44.9 Personal history of tobacco use Z87.891 Abnormal chest xray R93.89 Chronic cough R05.3 Obstructive sleep apnea G47.33
[2025-03-19 10:42] VITALS: BP 126/78; PULSE 74; O2SAT 95; BMI 35.1
--- NOTE | 2025-03-19 10:48 | MHC.OFFVIS ---
Vital Signs 03/19/25 10:42 Height 5 ft 5 in Weight 211 lb BMI 35.1 BP 126/78 Blood Pressure Location Rt brachial Pulse 74 Pulse Source Pulse Oximeter Pulse Oximetry (%) 95 Oxygen Delivery Method Room Air Intake Visit Reasons: COPD Ceo Na Required: No Torsion Spring Coiling Machine Setter: Torsion [place] Coiling Machine Setter offered & declined Accompanied by: Self / Same As Patient Allergies No Known Allergies Allergy (Verified 03/19/25 10:44) Medication List - Last Reconciled 03/19/25 by Alondra Sandoval LPN aspirin 81 mg PO DAILY atorvastatin 80 mg PO BEDTIME abmicdcpht-eqwfselx-somsjpymtq 160-9-4.8 mcg/actuation (Breztri Aerosphere) 2 inhalations inhalation BID doxycycline hyclate 100 mg PO BID empagliflozin 25 mg PO DAILY escitalopram oxalate 10 mg PO DAILY finasteride 5 mg PO DAILY gabapentin 300 mg PO DAILY levalbuterol tartrate 45 mcg/actuation (Xopenex HFA) 2 puffs inhalation Q4-6H PRN melatonin 3 mg PO BEDTIME PRN metoprolol succinate ER 25 mg PO DAILY omeprazole 20 mg PO DAILY prednisone 40 mg (2 x 20 mg) PO DAILY sacubitril-valsartan 49-51 mg (Entresto) 1 tab PO BID tamsulosin 0.4 mg PO DAILY PFSH Medical History HTN (hypertension) Hyperlipidemia COPD (chronic obstructive pulmonary disease) Diabetes Ischemic cardiomyopathy CAD (coronary artery disease) Surgical History Stented coronary artery Social History Alcohol intake: current Alcohol intake frequency: holidays/special occasions only Alcohol type: beer and hard liquor Patient Tobacco Use Status: Former Tobacco user Physical Exam Vital Signs: Last Vital Signs Pulse 74 03/19/25 10:42 BP 126/78 03/19/25 10:42 Pulse Ox 95 03/19/25 10:42 Oxygen Delivery Method Room Air 03/19/25 10:42 BMI result Body Mass Index 35.1 Assessment & Plan Assessment & Plan (1) COPD (chronic obstructive pulmonary disease): Code(s): J44.9 - Chronic obstructive pulmonary disease, unspecified Category: Medical (2) Personal history of tobacco use: Code(s): Z87.891 - Personal history of nicotine dependence Category: Social Hx (3) Abnormal chest xray: Code(s): R93.89 - Abnormal findings on diagnostic imaging of other specified body structures Category: Medical (4) Chronic cough: Code(s): R05.3 - Chronic cough Category: Medical (5) Obstructive sleep apnea: Code(s): G47.33 - Obstructive sleep apnea (adult) (pediatric) Category: Medical Coding Diagnoses COPD (chronic obstructive pulmonary disease) J44.9 Personal history of tobacco use Z87.891 Abnormal chest xray R93.89 Chronic cough R05.3 Obstructive sleep apnea G47.33
--- OUTSIDE RECORDS SUMMARY | 2025-03-19 11:00 | XMS_ITS | Clinical Summary ---
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
== END 2025-03-19 11:01 | disposition home or self-care (01) ==
LOC: HO.HPSW 10:31
PROVIDERS: PCP Internal Medicine; Referring Provider Nurse Practitioner Family; Visit Provider Nurse Practitioner Family
DX: J44.9 Chronic obstructive pulmonary disease, unspecified (principal); Z87.891 Personal history of nicotine dependence; R93.89 Abnormal findings on diagnostic imaging of other specified body structures; R05.3 Chronic cough; G47.33 Obstructive sleep apnea (adult) (pediatric)
CPT/HCPCS: 99214

== ENCOUNTER → 2025-03-19 10:30 | Outpatient (BNVA) | payer OTHER, SELFPAY | PROVIDERS: PCP Internal Medicine; Visit Provider Nurse Practitioner Family | DX: G47.33 Obstructive sleep apnea (adult) (pediatric) (principal); J44.9 Chronic obstructive pulmonary disease, unspecified; Z87.891 Personal history of nicotine dependence; R05.3 Chronic cough | CPT/HCPCS: 99212 ==

== ENCOUNTER 2025-04-02 12:42 | Outpatient (REF) | payer OTHER, SELFPAY ==
--- NOTE | ~2025-04-02 | CT_ITS ---
EXAMINATION: CT CHEST WITHOUT CONTRAST CLINICAL INFORMATION: Abnormal findings on previous imaging. COMPARISON: Correlated to x-ray dated November 23, 2024 reporting right infrahilar atelectasis/pneumonitis. TECHNIQUE: Multidetector volumetric CT imaging of the chest was done. Axial MIP volume rendering provided. Sagittal and coronal reformatted images were obtained. This CT examination was performed using dose optimization techniques as appropriate, variously including the following: *Automated exposure control *Adjustment of mA and/or kV according to patient size (this includes techniques or standardized protocols for targeted exams where dose is matched to indication/reason for exam; i.e. extremities or head) *Use of iterative reconstruction technique. DLP: 189 mGy centimeter. FINDINGS: SOCIOLOGY ADJUNCT INSTRUCTOR: Pulmonary reticular pattern. Hyperinflation. Prominent upper cardiomediastinal silhouette. Multilevel spondylosis. Patient's large body habitus/obesity. LUNGS: Multifocal, patchy, and confluent ill-defined nodular groundglass involving the peripheral right upper, left lower and right middle lung lobes extending from the peribronchial septal to the interlobular septa. No gross honeycombing. No gross bronchiectasis. Minimal paraseptal emphysematous changes in the lung apices. MEDIASTINUM: Nonspecific bilateral prominent with fatty hilum. Calcified lymph node right pretracheal. Trace of pericardial effusion. No pneumomediastinum. No hemopericardium. Calcified plaques in the thoracic aorta wall and its main branches. Calcifications in the coronary arteries. The thyroid gland is not enlarged and no fully included in the rtniy-ji-onik. CORONARY ARTERY CALCIFICATION: Dense calcified plaques. PLEURA: No pneumothorax. No pleural effusion. No hemothorax. No calcified pleural plaques. AXILLA: No lymphadenopathy. UPPER ABDOMEN: Nodular surface of the liver. Calcified plaques in the origin of the left main renal artery and superior mesenteric artery. OSSEOUS STRUCTURES: Multilevel spondylosis without acute fracture or listhesis in the axial skeleton. No acute rib fracture. Sternum is intact. Degenerative changes in the left glenohumeral joint. CT/CT chest wo IV con IMPRESSION: Concerning multifocal pneumonia. Recommend follow-up until resolution. Coronary artery disease and atherosclerosis disease. Probable hepatocellular disease. Fleischner guidelines were followed. Electronically signed by: Mikey Hutchison MD 04/02/2025 01:43 PM EDT
--- OUTSIDE RECORDS SUMMARY | 2025-04-02 12:44 | XMS_ITS | Clinical Summary ---
Author Organization [facility] ity Address [address] [place] [address] Care Team Providers Care Recording Studio Intern Name Role Phone Unavailable Primary Care Provider [...] Panel) 10/04/2023 Colorectal Cancer Screening: Colonoscopy 10/04/2023 Falls Risk Assessment 10/04/2023 Hepatitis C Screening 10/04/2023 Social Influencers of Health Screening 10/04/2023 COVID-19 Vaccine ( - 2023-2 5 season) 2024 Depression Screening 09/09/2024 Influenza Vaccine (#1) 2025 RSV Immunization Adult [...]
== END 2025-04-02 12:43 | disposition home or self-care (01) ==
LOC: HO.CT 12:42
PROVIDERS: PCP Internal Medicine; Visit Provider Nurse Practitioner Family
DX: R05.3 Chronic cough (principal); R93.89 Abnormal findings on diagnostic imaging of other specified body structures
CPT/HCPCS: 71250

== ENCOUNTER → 2025-04-02 12:44 | Outpatient (BNV) | payer OTHER, SELFPAY | PROVIDERS: PCP Internal Medicine; Visit Provider Radiology Diagnostic Radiology | DX: J18.8 Other pneumonia, unspecified organism (principal) | CPT/HCPCS: 71250 ==

== ENCOUNTER → 2025-04-15 08:54 | Outpatient (REF) | payer OTHER, SELFPAY ==
--- NOTE | ~2025-04-15 | NM_ITS ---
Lexiscan Myocardial perfusion study Indication: Coronary artery disease Technique: The patient was brought in for a Lexiscan perfusion study on 04/15/2025 and was injected 0.4 mg of Lexiscan intravenously. Within a minute of this injection 35 mCi of sestamibi was given intravenously. Images were obtained using the SPECT gamma camera interlaced with the gating device. Images were obtained in supine position. Resting perfusion study was performed on 04/16/2025. Patient was administered 35 mCi of sestamibi intravenously at rest. Images were then obtained in supine position. Total DLP 101 mGy-cm. Images were processed with the software and compared side to side in short axis, horizontal long axis and vertical long axis views. Findings: Raw aquisition reviewed. The stress perfusion study showed decreased tracer uptake along the inferior/inferolateral wall. There is improvement with CT attenuation correction that could indicate components of diaphragmatic attenuation artifact. The gated study shows mildly diminished LV systolic function with calculated LVEF of 47%. LV cavity is normal in size. The gated study shows reduced contractility in the inferior/inferolateral wall. Resting study shows diminished tracer uptake in the inferior/inferolateral wall. Improvement with CT attenuation correction could indicate components of diaphragmatic attenuation artifact. Gating at rest reveals diminished contractility in the inferior/inferolateral wall with LVEF of 43%. The findings are consistent with fixed perfusion defect in the inferior/inferolateral wall. No clear reversible defects. NM/NM cardiolite stress test Impression: 1. Myocardial perfusion imaging study shows fixed defect in the inferior/inferolateral wall. 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 2. Gated LVEF is 47% during stress and 43% during rest. 3. Transient ischemic dilatation not present. EKG component of the test reported separately. Electronically signed by: Jason Wheatley MD 04/18/2025 09:27 AM EDT
--- NOTE | 2025-04-15 08:57 | CA_ITS ---
Acquisition Time: 2025-04-15 09:15:59 Total Exercise Time: 00:02:00 Test Indications: CAD PREOP Medications: METOPROLOL ATROVASTATIN Protocol: LEXISCAN Max HR: 116 BPM 78% of Pred: 147 BPM Max BP: 118/60 mmHG Max Work Load: 1.0 METS Pharmacological stress test with Lexiscan while pt swings his legs in chair, with reports of SOB and flushing, with isolated PVCs during test, one 8 beat NSVT pre -procedure- pt asymptomatic with it, with normotensive response to injection. Nondiagnostic EKG for ischemia. In recovery, pt treated with IVP Aminophylline 75 mg to reverse Lexiscan after which pt feeling back to baseline. Nuclear images pending. Test reviewed with Dr. Wheatley. Referred By: Jeovany Valencia Electronically Signed By: Yong Eng
--- OUTSIDE RECORDS SUMMARY | 2025-04-15 09:16 | XMS_ITS | Clinical Summary ---
Author Organization [facility] ity Address [address] [place] [address] Care Team Providers Care Brim Setter Name Role Phone Unavailable Primary Care Provider [...]
== END ==
LOC: HO.CARD 08:54
PROVIDERS: PCP Internal Medicine; Referring Provider Internal Medicine Cardiovascular Disease; Visit Provider Internal Medicine Cardiovascular Disease
DX: Z01.818 Encounter for other preprocedural examination (principal); I25.10 Atherosclerotic heart disease of native coronary artery without angina pectoris; I25.5 Ischemic cardiomyopathy
CPT/HCPCS: 78452; 93017; A9500; J0280; J2785

== ENCOUNTER → 2025-04-15 08:57 | Outpatient (BNV) | payer OTHER, SELFPAY | PROVIDERS: PCP Internal Medicine | DX: I25.10 Atherosclerotic heart disease of native coronary artery without angina pectoris (principal); I42.8 Other cardiomyopathies | CPT/HCPCS: 78452 ==

== ENCOUNTER 2025-04-16 14:15 | Outpatient (REF) | payer OTHER, SELFPAY ==
--- OUTSIDE RECORDS SUMMARY | 2025-04-16 14:17 | XMS_ITS | Clinical Summary ---
Author Organization [facility] ity Address [address] [place] [address] Care Team Providers Care Upper And Bottom Lacer Hand Name Role Phone Unavailable Primary Care Provider [...]
--- NOTE | 2025-04-16 14:18 | PFT_ITS ---
Flows: FEV1: 67 % of predicted at 1.75 L FVC: 70 % of predicted at 2.67 L FEV1/FVC: 66 % Bronchodilator response: Absent Volumes: Total lung capacity: 77 % of predicted at 4.63 L Residual volume: 81 % of predicted at 1.81 L Slow vital capacity: 76 % of predicted at 2.81 L Expiratory reserve volume: 16 % of predicted at 0.16 L Diffusion capacity: Mildly decreased, corrects to normal after adjustment for alveolar ventilation. Impression: Combined moderate obstructive and restrictive ventilatory defects with no bronchodilator response. Decreased expiratory reserve volume suggests extrathoracic restriction likely secondary to abdominal obesity. Decreased diffusion capacity suggests emphysema. MTDD
[2025-04-16 14:55] VITALS: PULSE 73; O2SAT 95
== END 2025-04-16 14:16 | disposition home or self-care (01) ==
LOC: HO.RESP 14:15
PROVIDERS: PCP Internal Medicine; Referring Provider Nurse Practitioner Family; Visit Provider Nurse Practitioner Family
DX: J44.9 Chronic obstructive pulmonary disease, unspecified (principal); Z87.891 Personal history of nicotine dependence
CPT/HCPCS: 94010; 94640; 94727; 94729

== ENCOUNTER → 2025-04-16 14:18 | Outpatient (BNV) | payer OTHER, SELFPAY | PROVIDERS: PCP Internal Medicine; Visit Provider Internal Medicine Pulmonary Disease | DX: J44.9 Chronic obstructive pulmonary disease, unspecified (principal) | CPT/HCPCS: 94060; 94727; 94729 ==

== ENCOUNTER 2025-05-04 14:03 | Outpatient (AMB) | payer OTHER, SELFPAY ==
[2025-05-04 14:26] VITALS: BP 110/64; PULSE 80; O2SAT 95; BMI 35.4
--- NOTE | 2025-05-04 14:26 | MHC.OFFVIS ---
Vital Signs 05/04/25 14:26 Height 5 ft 5 in Weight 213 lb BMI 35.4 BP 110/64 Blood Pressure Location Rt brachial Position Sitting Pulse 80 Pulse Oximetry (%) 95 Oxygen Delivery Method Room Air Intake Visit Reasons: COPD Device Sales Consultant: Device Sales Consultant offered & declined Accompanied by: Spouse Allergies No Known Allergies Allergy (Verified 05/04/25 14:30) Medication List - Last Reconciled 05/04/25 by Alondra Sandoval LPN amoxicillin-pot clavulanate 875-125 mg 1 tab PO Q12H aspirin 81 mg PO DAILY atorvastatin 80 mg PO BEDTIME dbehjhnzic-qrusvcmn-ajdgqavnvz 160-9-4.8 mcg/actuation (Breztri Aerosphere) 2 inhalations inhalation BID empagliflozin 25 mg PO DAILY escitalopram oxalate 10 mg PO DAILY finasteride 5 mg PO DAILY gabapentin 300 mg PO DAILY levalbuterol tartrate 45 mcg/actuation (Xopenex HFA) 2 puffs inhalation Q4-6H PRN levofloxacin 500 mg PO DAILY melatonin 5 mg PO BEDTIME PRN metoprolol succinate ER 25 mg PO DAILY omeprazole 20 mg PO DAILY sacubitril-valsartan 49-51 mg (Entresto) 1 tab PO BID tamsulosin 0.4 mg PO DAILY PFSH Medical History HTN (hypertension) Hyperlipidemia COPD (chronic obstructive pulmonary disease) Diabetes Ischemic cardiomyopathy CAD (coronary artery disease) Surgical History Stented coronary artery Social History Alcohol intake: current Alcohol intake frequency: holidays/special occasions only Alcohol type: beer and hard liquor Patient Tobacco Use Status: Former Tobacco user Coding
--- NOTE | 2025-05-04 14:39 | MHC.OFFVIS ---
Vital Signs 05/04/25 14:26 Height 5 ft 5 in Weight 213 lb BMI 35.4 BP 110/64 Blood Pressure Location Rt brachial Position Sitting Pulse 80 Pulse Oximetry (%) 95 Oxygen Delivery Method Room Air Intake Visit Reasons: COPD Allergies No Known Allergies Allergy (Verified 05/04/25 14:30) Medication List - Last Reconciled 05/04/25 by Alondra Sandoval LPN amoxicillin-pot clavulanate 875-125 mg 1 tab PO Q12H aspirin 81 mg PO DAILY atorvastatin 80 mg PO BEDTIME xgswestvec-nxoxbtxq-vrrkwefgly 160-9-4.8 mcg/actuation (Breztri Aerosphere) 2 inhalations inhalation BID empagliflozin 25 mg PO DAILY escitalopram oxalate 10 mg PO DAILY finasteride 5 mg PO DAILY gabapentin 300 mg PO DAILY levalbuterol tartrate 45 mcg/actuation (Xopenex HFA) 2 puffs inhalation Q4-6H PRN levofloxacin 500 mg PO DAILY melatonin 5 mg PO BEDTIME PRN metoprolol succinate ER 25 mg PO DAILY omeprazole 20 mg PO DAILY sacubitril-valsartan 49-51 mg (Entresto) 1 tab PO BID sertraline 100 mg PO DAILY tamsulosin 0.4 mg PO DAILY HPI HPI COPD: Details: Spenser is a pleasant 74-year-old male, former 80 pack year smoker, quit 3 years ago with underlying COPD, CHF, GERD, ARMIDA noncompliant with CPAP and h/o CAD s/p stents. Since the last visit, patient treated for pneumonia as chest CT revealed multifocal pneumonia. The CT was performed shortly after finishing course of Augmentin and was recommended to picker operator Josefina as patient with persistent bronchitic symptoms, however he never picked up. He reports slow resolution of symptoms however resolved. Unfortunately shortly after feeling back to baseline patient contracted COVID while in [place] and was given some type of medication while there on 04/22. Today he denies any respiratory symptoms and again feels as though he has back to baseline. He has been using Breztri and requiring albuterol MDI 1-2 times per day. Today he presents to review PFT results. [facility] Medical History HTN (hypertension) Hyperlipidemia COPD (chronic obstructive pulmonary disease) Diabetes Ischemic cardiomyopathy CAD (coronary artery disease) Surgical History Stented coronary artery Social History Alcohol intake: current Alcohol intake frequency: holidays/special occasions only Alcohol type: beer and hard liquor Patient Tobacco Use Status: Former Tobacco user Review of Systems Const Denies chills, Denies excessive sweating, Denies fever(s), Denies headache(s) and Denies night sweats Eyes Denies dry eyes, Denies irritation and Denies itchy eyes ENT Reports Normal hearing present, Denies headache(s), Denies nasal congestion, Denies nasal discharge, Denies post nasal drip and Denies sore throat Card Denies chest pain, Denies chest pain at rest, Denies chest pain with activity, Denies claudication, Denies leg edema, Denies dyspnea, Denies dyspnea on exertion, Denies orthopnea and Denies paroxysmal nocturnal dyspnea Resp Denies chest congestion, Denies cough, Denies excessive phlegm production, Denies pain on inspiration, Denies pain with cough, Denies dyspnea, Denies dyspnea on exertion, Denies stridor and Denies wheezing Musc Denies myalgias Neuro Reports Normal hearing present and Denies headache(s) Endo Denies excessive sweating Javi/Lymph Denies lymphadenopathy Aller/Immun Denies itchy eyes, Denies seasonal rhinorrhea and Denies wheezing Physical Exam Vital Signs: Last Vital Signs Pulse 80 05/04/25 14:26 BP 110/64 05/04/25 14:26 Pulse Ox 95 05/04/25 14:26 Oxygen Delivery Method Room Air 05/04/25 14:26 BMI result Body Mass Index 35.4 Const General: cooperative, healthy appearing, comfortable, no acute distress, well developed and alert Nutritional Appearance: obese Orientation/consciousness: patient oriented x3 Limitations: no limitations HEENT Head: Yes normal to inspection, Yes normocephalic and Yes atraumatic Ears: hearing grossly normal bilaterally and external ears normal Eyes General: appearance normal, both eyes and all related structures Eyelids: Yes eyelids normal Sclerae: sclerae normal EOM: EOMs intact bilaterally Neck Neck: Yes normal visual inspection and Yes no lymphadenopathy Lymphatic: no lymphadenopathy noted Chest Chest palpation & inspection: normal inspection of the chest Resp Effort & Inspection: normal respiratory effort, able to speak in complete sentences, no audible wheezes, no cough, no stridor, not tachypneic, no tripod positioning and no use of accessory muscles Auscultation: no crackles, no rhonchi, no wheezes and diminished lung sounds Cardio Jugular venous distension: no JVD Rate: regular rate Rhythm: regular rhythm Skin Other: warm, dry General skin exam: no rashes or lesions noted Neuro General: patient oriented x3 Cranial nerves: Yes Normal hearing present Cognition (Neuro): normal cognition Gait exam (Neuro): Normal gait present Extrem General: Yes normal to inspection, Yes capillary refill normal, Yes no clubbing, cyanosis or edema and Yes no pedal edema Psych Appearance: grossly normal and well kempt Speech and movement: Normal speech and movement present and Clear speech present Affect: normal affect Attitude: cooperative Thought process: Normal thought process present Thought content: Normal thought content present Insight: Good insight present (Psych) Judgement: Good judgement present (Psych) Results Reviewed Results Reviewed: [place] [id number] CT Scan Report Signed Patient: Spenser Tiwari MR#: [id number] : 1950 Acct:[id number] Age/Sex: 74 / M ADM Date: 04/02/25 Loc: HO.CT Attending Dr: Makayla Anderson NP Ordering Physician: Makayla Anderson NP Date of Service: 04/02/25 Procedure(s): CT chest wo IV con Accession Number(s): [id number] cc: Ricki Desai MD; Makayla Anderson NP~ Report Number: [id number]: Total DLP = 189.00 mGy-cm EXAMINATION: CT CHEST WITHOUT CONTRAST CLINICAL INFORMATION: Abnormal findings on previous imaging. COMPARISON: Correlated to x-ray dated November 23, 2024 reporting right infrahilar atelectasis/pneumonitis. TECHNIQUE: Multidetector volumetric CT imaging of the chest was done. Axial MIP volume rendering provided. Sagittal and coronal reformatted images were obtained. This CT examination was performed using dose optimization techniques as appropriate, variously including the following: *Automated exposure control *Adjustment of mA and/or kV according to patient size (this includes techniques or standardized protocols for targeted exams where dose is matched to indication/reason for exam; i.e. extremities or head) *Use of iterative reconstruction technique. DLP: 189 mGy centimeter. FINDINGS: INBOUND CUSTOMER SERVICE REPRESENTATIVE: Pulmonary reticular pattern. Hyperinflation. Prominent upper cardiomediastinal silhouette. Multilevel spondylosis. Patient's large body habitus/obesity. LUNGS: Multifocal, patchy, and confluent ill-defined nodular groundglass involving the peripheral right upper, left lower and right middle lung lobes extending from the peribronchial septal to the interlobular septa. No gross honeycombing. No gross bronchiectasis. Minimal paraseptal emphysematous changes in the lung apices. MEDIASTINUM: Nonspecific bilateral prominent with fatty hilum. Calcified lymph node right pretracheal. Trace of pericardial effusion. No pneumomediastinum. No hemopericardium. Calcified plaques in the thoracic aorta wall and its main branches. Calcifications in the coronary arteries. The thyroid gland is not enlarged and no fully included in the cldop-mb-nxlg. CORONARY ARTERY CALCIFICATION: Dense calcified plaques. PLEURA: No pneumothorax. No pleural effusion. No hemothorax. No calcified pleural plaques. AXILLA: No lymphadenopathy. UPPER ABDOMEN: Nodular surface of the liver. Calcified plaques in the origin of the left main renal artery and superior mesenteric artery. OSSEOUS STRUCTURES: Multilevel spondylosis without acute fracture or listhesis in the axial skeleton. No acute rib fracture. Sternum is intact. Degenerative changes in the left glenohumeral joint. CT/CT chest wo IV con IMPRESSION: Concerning multifocal pneumonia. Recommend follow-up until resolution. Coronary artery disease and atherosclerosis disease. Probable hepatocellular disease. Fleischner guidelines were followed. Electronically signed by: Mikey Hutchison MD 04/02/2025 01:43 PM EDT Dictated By: Mikey Sy MD Signed By: <Electronically signed by Mikey Farrell MD in OV> 04/02/25 1343 DD/ 1254 TD/TT: 04/02/25 1332 Mammography Technician: Assessment & Plan Assessment & Plan (1) History of recent pneumonia: Code(s): Z87.01 - Personal history of pneumonia (recurrent) Category: Medical (2) COPD (chronic obstructive pulmonary disease): Code(s): J44.9 - Chronic obstructive pulmonary disease, unspecified Category: Medical (3) Personal history of tobacco use: Code(s): Z87.891 - Personal history of nicotine dependence Category: Social Hx (4) Chronic cough: Code(s): R05.3 - Chronic cough Category: Medical (5) Obstructive sleep apnea: Code(s): G47.33 - Obstructive sleep apnea (adult) (pediatric) Category: Medical Plan PFT revealed combined moderate obstructive and restrictive ventilatory defects with no bronchodilator response. Decreased expiratory reserve volume suggests extrathoracic restriction likely secondary to abdominal obesity. Decreased diffusion capacity suggests emphysema. At this time he feels his symptoms are well controlled on Breztri and albuterol MDI, advised to continue. Will repeat chest CT in 4 weeks to assess for resolution of prior multifocal pneumonia. He is aware to call if symptoms change. All questions were answered and patient is in agreement of plan. Will follow-up in 8-10 weeks or sooner if needed. Orders: Orders CT chest wo IV con 4 Weeks Z87.01 - Personal history of pneumonia (recurrent) Coding Level of Care Code Est Pt Level 4 (87454) Diagnoses History of recent pneumonia Z87. COPD (chronic obstructive pulmonary disease) J44.9 Personal history of tobacco use Z87.891 Chronic cough R05.3 Obstructive sleep apnea G47.33
--- OUTSIDE RECORDS SUMMARY | 2025-05-04 15:01 | XMS_ITS | Clinical Summary ---
Author Organization [facility] ity Address [address] [place] [address] Care Team Providers Care Superintendent Pipelines Name Role Phone Unavailable Primary Care Provider [...]
== END 2025-05-04 15:00 | disposition home or self-care (01) ==
LOC: HO.HPSW 14:04
PROVIDERS: PCP Internal Medicine; Referring Provider Nurse Practitioner Family; Visit Provider Nurse Practitioner Family
DX: Z87.01 Personal history of pneumonia (recurrent) (principal); J44.9 Chronic obstructive pulmonary disease, unspecified; Z87.891 Personal history of nicotine dependence; R05.3 Chronic cough; G47.33 Obstructive sleep apnea (adult) (pediatric)
CPT/HCPCS: 99214

== ENCOUNTER → 2025-05-04 14:03 | Outpatient (BNVA) | payer OTHER, SELFPAY | PROVIDERS: PCP Internal Medicine; Visit Provider Nurse Practitioner Family | DX: Z87.01 Personal history of pneumonia (recurrent) (principal); J44.9 Chronic obstructive pulmonary disease, unspecified | CPT/HCPCS: 99212 ==

== ENCOUNTER 2025-07-20 13:06 | Outpatient (AMB) | payer OTHER, SELFPAY ==
--- NOTE | 2025-07-20 13:22 | A.OFFVIS_ITS ---
Vital Signs 07/20/25 13:23 Height 5 ft 5 in Weight 216 lb 0.848 oz BMI 35.9 BP 120/80 Blood Pressure Location Lt brachial Position Sitting Pulse 76 Intake Visit Reasons: 6m follow up Intake Note: 6 month follow-up feeling good Marine Structural Designer Required: Yes Marine Structural Designer Services: Marine Structural Designer Present Marine Structural Designer Name: Vidya Brush Lumber Sales Supervisor: Lumber Sales Supervisor Present Accompanied by: Spouse Allergies No Known Allergies Allergy (Verified 05/04/25 14:30) Medication List - Last Reconciled 07/20/25 by Jeovany Valencia MD aspirin 81 mg PO DAILY atorvastatin 80 mg PO BEDTIME slhoyibzeg-dxtetmyz-xbxluypybr 160-9-4.8 mcg/actuation (Breztri Aerosphere) 2 inhalations inhalation BID empagliflozin 25 mg PO DAILY finasteride 5 mg PO DAILY gabapentin 300 mg PO DAILY levalbuterol tartrate 45 mcg/actuation (Xopenex HFA) 2 puffs inhalation Q4-6H PRN melatonin 5 mg PO BEDTIME PRN metoprolol succinate ER 25 mg PO DAILY omeprazole 20 mg PO DAILY sacubitril-valsartan 49-51 mg (Entresto) 1 tab PO BID sertraline 100 mg PO DAILY tamsulosin 0.4 mg PO DAILY HPI Comments Details: Spenser also follow-up, accompanied by his . History was obtained with help of underwriting assistant over the telephone. Patient has been overall doing well except for having symptoms of intermittent palpitations. He is not better able to describe but says that he feels irregular heartbeat usually when he is resting. Happens about twice a week. Symptoms without any clear triggers. Patient denies any exertional chest pain. Patient denies any worsening shortness of breath, orthopnea, PND, leg edema, weight gain. No lightheadedness, syncope. [facility] Medical History HTN (hypertension) Hyperlipidemia COPD (chronic obstructive pulmonary disease) Diabetes Ischemic cardiomyopathy CAD (coronary artery disease) Surgical History Stented coronary artery Social History Alcohol intake: current Alcohol intake frequency: holidays/special occasions only Alcohol type: beer and hard liquor Patient Tobacco Use Status: Former Tobacco user Review of Systems Const Denies chills, Denies fatigue, Denies fever(s), Denies frequent falls, Denies weakness, Denies weight gain and Denies weight loss ENT Denies dizziness Card Denies chest pain, Denies leg edema, Denies lightheadedness, Denies palpitations, Denies dyspnea, Denies dyspnea on exertion, Denies orthopnea and Denies other (loss of consciousness) Resp Denies cough, Denies dyspnea and Denies dyspnea on exertion GI Denies hematochezia and Denies change in stool character Musc Denies abnormal gait, Denies muscle weakness, Denies numbness, Denies radiating pain into limb and Denies tingling Neuro Denies Abnormal speech present, Denies abnormal gait, Denies dizziness, Denies frequent falls, Denies numbness, Denies tingling and Denies weakness Endo Denies fatigue and Denies palpitations Physical Exam Vital Signs: Last Vital Signs Pulse 76 07/20/25 13:23 BP 120/80 07/20/25 13:23 BMI result Body Mass Index 35.9 Const General: cooperative, comfortable, no acute distress, alert and awake Nutritional Appearance: obese Orientation/consciousness: patient oriented x3 Limitations: ambulation with cane HEENT Head: Yes normocephalic and Yes atraumatic Neck Neck: Yes trachea midline, Yes supple and Yes no JVD Resp Effort & Inspection: normal respiratory effort Auscultation: no rales, no wheezes and diminished lung sounds Cardio Jugular venous distension: no JVD Rate: regular rate Rhythm: regular rhythm Heart sounds: S1 normal heart sound present, S2 normal heart sound present, no click, no gallops, no murmurs and no rubs Bruits: no carotid bruits GI Inspection: Yes obesity Auscultation: normal bowel sounds Skin General skin exam: no rashes or lesions noted and ecchymosis Neuro General: patient oriented x3 and no focal motor deficits Speech: No Abnormal speech present Extrem General: Yes no clubbing, cyanosis or edema Psych Appearance: grossly normal Assessment & Plan Assessment & Plan (1) Ischemic cardiomyopathy: Code(s): I25.5 - Ischemic cardiomyopathy Category: Medical Plan: Ischemic cardiomyopathy with yziw-de-tljzxfll LV systolic dysfunction without overt signs of congestive heart failure. Will continue to uptitrate and maximize his neurohormonal modulation. Increase Entresto to 97-103 mg b.i.d. as well as increase Toprol to 50 mg daily. Advised nurse visit in 1 week with blood work to assess tolerance to treatment. Advised to continue monitor blood pressure at home maintain a log. Signs and symptoms of heart failure were discussed. Continue Jardiance therapy which he is utilizing for diabetes. Follow-up echocardiogram in 6 months time. (2) CAD (coronary artery disease): Code(s): I25.10 - Atherosclerotic heart disease of [place] coronary artery without angina pectoris Category: Medical Plan: CAD with multivessel PCI currently doing well without any symptoms of angina. Continue lifelong aspirin therapy. Continue high-intensity statin therapy with target goal LDL less than 60 mg/dL. Advised lipid panel in near future. Continue aggressive diabetes management goal hemoglobin A1c less than 7%. Encouraged to increase activity level and participate in weight loss program. Advised to call me with any new symptoms. Will follow up in the clinic in 6 months time, sooner PRN. Thank you for allowing me to partake in his care Orders: Orders ECG 7 day holter monitor Today I25.5 - Ischemic cardiomyopathy, R00.2 - Palpitations Basic Metabolic Panel Today I25.5 - Ischemic cardiomyopathy Lipid Panel Today I25.10 - Atherosclerotic heart disease of [place] coronary artery without angina pectoris, I25.5 - Ischemic cardiomyopathy CA echo transthoracic complete 6 Months I25.5 - Ischemic cardiomyopathy Medications: New metoprolol succinate ER (Toprol XL) 50 mg PO DAILY 30 tabs 5RF sacubitril-valsartan 97-103 mg (Entresto) 1 tab PO BID 60 tabs 5RF Coding Level of Care Code Est Pt Level 4 (37672) Complex EM visit Add On G2211 Diagnoses Ischemic cardiomyopathy I25.5 CAD (coronary artery disease) I25.10
[2025-07-20 13:23] VITALS: BP 120/80; PULSE 76; BMI 35.9
--- OUTSIDE RECORDS SUMMARY | 2025-07-20 14:53 | XMS_ITS | Clinical Summary ---
Author Organization [facility] ity Address [address] [place] [address] Care Team Providers Care Stage Hand Name Role Phone Unavailable Primary Care Provider Unavailabl e Social History Tobacco Use Types Packs/Day Years Used Date Smoking Tobacco: Never Assessed Sex and Gender Information Value Date Recorded Sex Assigned at Not on file Legal Sex Male 9:00 PM EST Gender Identity Not on file Sexual Orientation Not on file Plan of Treatment Health Maintenance Due Date Last Done Comments Colorectal Cancer Screening: Colonoscopy 1950 DTaP,Tdap,and Td Vaccines (1 - Tdap) 1970 Pneumococcal Vaccine: 50+ Ye ars (1 of 1 - PCV) 2001 Zoster Vaccines (1 of 2) 2001 Abdominal Aortic Aneurysm (A AA) Screen 10/04/2023 Cholesterol Screening (Lipid Panel) 10/04/2023 Falls Risk Assessment 10/04/2023 Hepatitis C Screening 10/04/2023 Social Influencers of Health Screening 10/04/2023 Depression Screening 09/09/2024 COVID-19 Vaccine (1 - 2023-2 5 season) 2025 Influenza Vaccine (#1) 2025 RSV Immunization Adult [...]
== END 2025-07-20 13:54 | disposition home or self-care (01) ==
LOC: HO.HCS 13:07
PROVIDERS: PCP Internal Medicine; Referring Provider Internal Medicine Cardiovascular Disease; Visit Provider Internal Medicine Cardiovascular Disease
DX: I25.5 Ischemic cardiomyopathy (principal); I25.10 Atherosclerotic heart disease of native coronary artery without angina pectoris
CPT/HCPCS: 99214; G2211

== ENCOUNTER → 2025-07-20 13:06 | Outpatient (BNVA) | payer OTHER, SELFPAY | PROVIDERS: PCP Internal Medicine; Visit Provider Internal Medicine Cardiovascular Disease | DX: I25.5 Ischemic cardiomyopathy (principal); I25.10 Atherosclerotic heart disease of native coronary artery without angina pectoris | CPT/HCPCS: 99212 ==

== ENCOUNTER 2025-07-21 07:29 | Outpatient (REF) | payer OTHER, SELFPAY ==
--- NOTE | ~2025-07-21 | CT_ITS ---
EXAMINATION: CT CHEST WITHOUT CONTRAST CLINICAL INFORMATION: Z87.01 - Personal history of pneumonia (recurrent) COMPARISON: Chest CT on April 02, 2025. Chest radiograph on November 23, 2024 TECHNIQUE: Multidetector volumetric CT imaging of the chest was done. Axial MIP volume rendering provided. Sagittal and coronal reformatted images were obtained. This CT examination was performed using dose optimization techniques as appropriate, variously including the following: *Automated exposure control *Adjustment of mA and/or kV according to patient size (this includes techniques or standardized protocols for targeted exams where dose is matched to indication/reason for exam; i.e. extremities or head) *Use of iterative reconstruction technique FINDINGS: GLASSWARE MAKER: No confluent consolidation. LUNGS: Central airways are patent. Diffuse bronchial wall thickening. Mild paraseptal emphysema in bilateral upper lobes. No focal consolidation. Near-complete resolution of previously seen confluent areas of airspace disease involving adjacent interstitium. Respiratory motion partially limits evaluation for pulmonary nodules. Scattered pulmonary nodules, for example: 0.2 cm in the left upper lobe (4:39/163, unchanged), 0.2 cm in the left upper lobe (4:48/163, unchanged), 0.3 cm in the right upper lobe (4:67/163, probably residual airspace disease), 0.2 cm in the left upper lobe (4:71/163, unchanged), 0.4 cm in the left lower lobe along the left fissure (4:97/163, probably perifissural lymph node, mildly more prominent), 0.1 cm in the right lower lobe (4:101/163, unchanged) PLEURA: No pleural effusion or pneumothorax. MEDIASTINUM: Partially included left thyroid calcification. Heart is normal in size. Similarly small anterior pericardial effusion. Scattered vascular calcifications along the thoracic aorta and great vessels. CORONARY ARTERY CALCIFICATION: Severe amount of coronary artery calcifications. LYMPH NODES: No lymphadenopathy. UPPER ABDOMEN: Vascular calcifications. OSSEOUS STRUCTURES: No acute or suspicious findings. SOFT TISSUES: Stable approximately 1.7 cm subcutaneous skin lesion in the posterior lower back, likely sebaceous cyst (3:39/66, 7:62/125). CT/CT chest wo IV con IMPRESSION: 1. Near complete resolution of previously seen multifocal lung disease. 2. Multiple pulmonary nodules as described above, the largest measuring 0.4 cm. 3. Mild diffuse bronchial wall thickening likely represent bronchitis. Electronically signed by: Jacques Valera MD 07/21/2025 09:17 AM [facility] [place] [place]
--- OUTSIDE RECORDS SUMMARY | 2025-07-21 07:31 | XMS_ITS | Clinical Summary ---
Author Organization [facility] ity Address [address] [place] [address] Care Team Providers Care Chandelier Maker Name Role Phone Unavailable Primary Care [...]
== END 2025-07-21 07:30 | disposition home or self-care (01) ==
LOC: HO.CT 07:29
PROVIDERS: PCP Internal Medicine; Visit Provider Nurse Practitioner Family
DX: Z87.01 Personal history of pneumonia (recurrent) (principal)
CPT/HCPCS: 71250

== ENCOUNTER → 2025-07-21 07:30 | Outpatient (BNV) | payer OTHER, SELFPAY | PROVIDERS: PCP Internal Medicine; Visit Provider Radiology Body Imaging | DX: R91.8 Other nonspecific abnormal finding of lung field (principal); J98.09 Other diseases of bronchus, not elsewhere classified; Z87.01 Personal history of pneumonia (recurrent) | CPT/HCPCS: 71250 ==

== ENCOUNTER 2025-07-26 12:24 | Outpatient (REF) | payer OTHER, SELFPAY ==
[2025-07-26 13:25] LABS: Anion Gap 11 (12-20); Blood Urea Nitrogen 18 mg/dL (9-16); Calcium 9.2 mg/dL (8.4-10.2); Carbon Dioxide 28 mmol/L (22-29); Chloride 109 mmol/L (96-108); Cholesterol 128 mg/dL (<200); Estimated Glomerular Filt Rate > 60; HDL Cholesterol 46 mg/dL (>40); Potassium 4.3 mmol/L (3.3-5.1); Sodium 144 mmol/L (135-145); Triglycerides 114 mg/dL (<150)
== END 2025-07-26 12:25 | disposition home or self-care (01) ==
LOC: HO.LAB 12:24
PROVIDERS: PCP Internal Medicine; Visit Provider Internal Medicine Cardiovascular Disease
DX: I25.10 Atherosclerotic heart disease of native coronary artery without angina pectoris (principal); I25.5 Ischemic cardiomyopathy
CPT/HCPCS: 36415; 80048; 80061

== ENCOUNTER 2025-08-17 15:26 | Outpatient (AMB) | payer OTHER, SELFPAY ==
[2025-08-17 15:29] VITALS: BP 118/78; PULSE 72; O2SAT 96; BMI 36.4
--- NOTE | 2025-08-17 15:29 | A.OFFVIS_ITS ---
Vital Signs 08/17/25 15:29 Height 5 ft 5 in Weight 219 lb BMI 36.4 BP 118/78 Blood Pressure Location Rt brachial Position Sitting Pulse 72 Pulse Source Pulse Oximeter Pulse Oximetry (%) 96 Oxygen Delivery Method Room Air Intake Visit Reasons: COPD Linting Machine Operator Required: Yes Linting Machine Operator Name: Loreto Garvin Supervisor Long Goods: Supervisor Long Goods offered & declined Accompanied by: Self / Same As Patient Allergies No Known Allergies Allergy (Verified 08/17/25 15:31) Medication List - Last Reconciled 08/17/25 by Alondra Sandoval LPN aspirin 81 mg PO DAILY atorvastatin 80 mg PO BEDTIME erozdlkstf-wxiwpcsl-victtvgtss 160-9-4.8 mcg/actuation (Breztri Aerosphere) 2 inhalations inhalation BID empagliflozin 25 mg PO DAILY finasteride 5 mg PO DAILY gabapentin 300 mg PO DAILY levalbuterol tartrate 45 mcg/actuation (Xopenex HFA) 2 puffs inhalation Q4-6H PRN melatonin 5 mg PO BEDTIME PRN metoprolol succinate ER (Toprol XL) 50 mg PO DAILY omeprazole 20 mg PO DAILY sacubitril-valsartan 97-103 mg (Entresto) 1 tab PO BID sertraline 100 mg PO DAILY tamsulosin 0.4 mg PO DAILY HPI HPI COPD: Details: Spenser is a pleasant 75-year-old male, former 80 pack year smoker, quit 3 years ago with underlying moderate COPD, CHF, GERD, ARMIDA noncompliant with CPAP and h/o CAD s/p stents. March 2025 patient with multifocal pneumonia on chest CT and treated with Augmentin, with slow resolution of symptoms however resolved. Unfortunately shortly after feeling back to baseline patient contracted COVID while in [place] and was given some type of medication while there on 04/22. Today he denies any respiratory symptoms and again feels as though he has back to baseline. He has been using Breztri and requiring albuterol MDI/neb 1-2 times per day. He denies any visits to urgent care or hospitalizations related to respiratory distress since the last visit. Today he presents to review chest CT results. Of note, patient also eager to proceed with left shoulder arthoplasty with NEOS, which had to be postponed due to pneumonia in March. [facility] Medical History HTN (hypertension) Hyperlipidemia COPD (chronic obstructive pulmonary disease) Diabetes Ischemic cardiomyopathy CAD (coronary artery disease) Surgical History Stented coronary artery Social History Alcohol intake: current Alcohol intake frequency: holidays/special occasions only Alcohol type: beer and hard liquor Patient Tobacco Use Status: Former Tobacco user Review of Systems Const Denies chills, Denies excessive sweating, Denies fever(s), Denies headache(s) and Denies night sweats Eyes Denies dry eyes, Denies irritation and Denies itchy eyes ENT Reports Normal hearing present, Denies headache(s), Denies nasal congestion, Denies nasal discharge, Denies post nasal drip and Denies sore throat Card Denies chest pain, Denies chest pain at rest, Denies chest pain with activity, Denies claudication, Denies leg edema, Denies dyspnea, Denies dyspnea on exertion, Denies orthopnea and Denies paroxysmal nocturnal dyspnea Resp Denies chest congestion, Denies cough, Denies excessive phlegm production, Denies pain on inspiration, Denies pain with cough, Denies dyspnea, Denies dyspnea on exertion, Denies stridor and Denies wheezing Musc Denies myalgias Neuro Reports Normal hearing present and Denies headache(s) Endo Denies excessive sweating Javi/Lymph Denies lymphadenopathy Aller/Immun Denies itchy eyes, Denies seasonal rhinorrhea and Denies wheezing Physical Exam Vital Signs: Last Vital Signs Pulse 72 08/17/25 15:29 BP 118/78 08/17/25 15:29 Pulse Ox 96 08/17/25 15:29 Oxygen Delivery Method Room Air 08/17/25 15:29 BMI result Body Mass Index 36.4 Const General: cooperative, healthy appearing, comfortable, no acute distress, well developed and alert Nutritional Appearance: obese Orientation/consciousness: patient oriented x3 Limitations: ambulation with cane HEENT Head: Yes normal to inspection, Yes normocephalic and Yes atraumatic Ears: hearing grossly normal bilaterally and external ears normal Eyes General: appearance normal, both eyes and all related structures Eyelids: Yes eyelids normal Sclerae: sclerae normal EOM: EOMs intact bilaterally Neck Neck: Yes normal visual inspection and Yes no lymphadenopathy Lymphatic: no lymphadenopathy noted Chest Chest palpation & inspection: normal inspection of the chest Resp Effort & Inspection: normal respiratory effort, able to speak in complete sentences, no audible wheezes, no cough, no stridor, not tachypneic, no tripod positioning and no use of accessory muscles Auscultation: no crackles, no rhonchi, no wheezes and diminished lung sounds Cardio Jugular venous distension: no JVD Rate: regular rate Rhythm: regular rhythm Skin Other: warm, dry General skin exam: no rashes or lesions noted Neuro General: patient oriented x3 Cranial nerves: Yes Normal hearing present Cognition (Neuro): normal cognition Extrem General: Yes normal to inspection, Yes capillary refill normal, Yes no clubbing, cyanosis or edema and Yes no pedal edema Psych Appearance: grossly normal and well kempt Speech and movement: Normal speech and movement present and Clear speech present Affect: normal affect Attitude: cooperative Thought process: Normal thought process present Thought content: Normal thought content present Insight: Good insight present (Psych) Judgement: Good judgement present (Psych) Results Reviewed Results Reviewed: [place] [id number] CT Scan Report Signed Patient: Spenser Tiwari MR#: [id number] : 1950 Acct:[id number] Age/Sex: 75 / M ADM Date: 07/21/25 Loc: .CT Attending Dr: Makayla Anderson NP Ordering Physician: Makayla Anderson NP Date of Service: 07/21/25 Procedure(s): CT chest wo IV con Accession Number(s): [id number] cc: Ricki Desai MD; Makayla Anderson NP~ Report Number: [id number]: Total DLP = 201.00 mGy-cm Reason for Exam: - Personal history of pneumonia (recurrent) EXAMINATION: CT CHEST WITHOUT CONTRAST CLINICAL INFORMATION: - Personal history of pneumonia (recurrent) COMPARISON: Chest CT on April 02, 2025. Chest radiograph on November 23, 2024 TECHNIQUE: Multidetector volumetric CT imaging of the chest was done. Axial MIP volume rendering provided. Sagittal and coronal reformatted images were obtained. This CT examination was performed using dose optimization techniques as appropriate, variously including the following: *Automated exposure control *Adjustment of mA and/or kV according to patient size (this includes techniques or standardized protocols for targeted exams where dose is matched to indication/reason for exam; i.e. 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 LUNGS: Central airways are patent. Diffuse bronchial wall thickening. Mild paraseptal emphysema in bilateral upper lobes. No focal consolidation. Near-complete resolution of previously seen confluent areas of airspace disease involving adjacent interstitium. Respiratory motion partially limits evaluation for pulmonary nodules. Scattered pulmonary nodules, for example: 0.2 cm in the left upper lobe (4:39/163, unchanged), 0.2 cm in the left upper lobe (4:48/163, unchanged), 0.3 cm in the right upper lobe (4:67/163, probably residual airspace disease), 0.2 cm in the left upper lobe (4:71/163, unchanged), 0.4 cm in the left lower lobe along the left fissure (4:97/163, probably perifissural lymph node, mildly more prominent), 0.1 cm in the right lower lobe (4:101/163, unchanged) PLEURA: No pleural effusion or pneumothorax. MEDIASTINUM: Partially included left thyroid calcification. Heart is normal in size. Similarly small anterior pericardial effusion. Scattered vascular calcifications along the thoracic aorta and great vessels. CORONARY ARTERY CALCIFICATION: Severe amount of coronary artery calcifications. LYMPH NODES: No lymphadenopathy. UPPER ABDOMEN: Vascular calcifications. OSSEOUS STRUCTURES: No acute or suspicious findings. SOFT TISSUES: Stable approximately 1.7 cm subcutaneous skin lesion in the posterior lower back, likely sebaceous cyst (3:39/66, 7:62/125). CT/CT chest wo IV con IMPRESSION: 1. Near complete resolution of previously seen multifocal lung disease. 2. Multiple pulmonary nodules as described above, the largest measuring 0.4 cm. 3. Mild diffuse bronchial wall thickening likely represent bronchitis. Electronically signed by: Jacques Valera MD 07/21/2025 09:17 AM [facility] [place] By: Jacques Valera MD Signed By: <Electronically signed by Jacques Valera MD in [place]> 07/21/25 0917 DD/ 0744 TD/TT: 07/21/25 0832 Methodologist: Assessment & Plan Assessment & Plan (1) Encounter for preoperative pulmonary examination: Code(s): Z01.811 - Encounter for preprocedural respiratory examination Category: Medical (2) COPD (chronic obstructive pulmonary disease): Code(s): J44.9 - Chronic obstructive pulmonary disease, unspecified Category: Medical (3) Obstructive sleep apnea: Code(s): G47.33 - Obstructive sleep apnea (adult) (pediatric) Category: Medical (4) Multiple pulmonary nodules: Code(s): R91.8 - Other nonspecific abnormal finding of lung field Category: Medical (5) Personal history of tobacco use: Code(s): Z87.891 - Personal history of nicotine dependence Category: Social Hx Plan PFT revealed combined moderate obstructive and restrictive ventilatory defects with no bronchodilator response. Decreased expiratory reserve volume suggests extrathoracic restriction likely secondary to abdominal obesity. Decreased diffusion capacity suggests emphysema. At this time he feels his symptoms are well controlled on Breztri and albuterol MDI, advised to continue. Reviewed chest CT which demonstrates resolution of prior multifocal pneumonia, continues to reveal multiple pulmonary nodules, likely benign however given smoking his tory will monitor in one year to assess stability. Patient has a h/o ARMIDA, unknown severity, and reports inabiliy to tolerate and not interesting to repeating HST to reestablish diagnosis. Given his noncompliance with CPAP therapy, at this time, patient would be considered moderate risk for perioperative pulmonary complications. Consider bronchodilators during perioperative period. All questions were answered and patient is in agreement of plan. Will follow-up in 8-10 weeks or sooner if needed. Coding Level of Care Code Est Pt Level 4 (36121) Diagnoses Encounter for preoperative pulmonary examination Z01.811 COPD (chronic obstructive pulmonary disease) J44.9 Obstructive sleep apnea G47.33 Multiple pulmonary nodules R91.8 Personal history of tobacco use Z87.89
--- OUTSIDE RECORDS SUMMARY | 2025-08-17 22:00 | XMS_ITS | Clinical Summary ---
Author Organization [facility] ity Address [address] [place] [address] Care Team Providers Care Payment Collector Name Role Phone Unavailable Primary Care Provider [...] Depression Screening 09/09/2024 COVID-19 Vaccine (1 - 2024-2 6 season) 2025 Influenza Vaccine (#1) 2025 RSV [...]
== END 2025-08-17 15:50 | disposition home or self-care (01) ==
LOC: HO.HPSW 15:26
PROVIDERS: PCP Internal Medicine; Visit Provider Nurse Practitioner Family
DX: Z01.811 Encounter for preprocedural respiratory examination (principal); J44.9 Chronic obstructive pulmonary disease, unspecified; G47.33 Obstructive sleep apnea (adult) (pediatric); R91.8 Other nonspecific abnormal finding of lung field; Z87.891 Personal history of nicotine dependence
CPT/HCPCS: 99214

== ENCOUNTER → 2025-08-17 15:26 | Outpatient (BNVA) | payer OTHER, SELFPAY | PROVIDERS: PCP Internal Medicine; Visit Provider Nurse Practitioner Family | DX: Z01.811 Encounter for preprocedural respiratory examination (principal); J44.9 Chronic obstructive pulmonary disease, unspecified; G47.33 Obstructive sleep apnea (adult) (pediatric); R91.8 Other nonspecific abnormal finding of lung field; Z87.891 Personal history of nicotine dependence; Z99.89 Dependence on other enabling machines and devices; Z79.899 Other long term (current) drug therapy | CPT/HCPCS: 99212 ==

== ENCOUNTER → 2025-09-07 12:46 | Outpatient (REF) | payer OTHER, SELFPAY ==
--- OUTSIDE RECORDS SUMMARY | 2025-09-07 16:41 | XMS_ITS | Clinical Summary ---
Author Organization [facility] ity Address [address] [place] [address] Care Team Providers Care Recreational Vehicle Resort Manager Name Role Phone Unavailable Primary Care Provider [...]
== END ==
LOC: HO.CARD 12:46
PROVIDERS: PCP Internal Medicine; Visit Provider Internal Medicine Cardiovascular Disease
DX: I25.5 Ischemic cardiomyopathy (principal); R00.2 Palpitations
CPT/HCPCS: 93242

== ENCOUNTER → 2025-09-07 12:49 | Outpatient (BNV) | payer OTHER, SELFPAY | PROVIDERS: PCP Internal Medicine; Visit Provider Internal Medicine | DX: I25.5 Ischemic cardiomyopathy (principal) | CPT/HCPCS: 93244 ==